=== PATIENT | male | born 1970 | race Caucasian/White ===

== ENCOUNTER → 2022-09-06 08:24 | Outpatient (CLI) | payer OTHER, SELFPAY ==
--- NOTE | ~2022-09-06 | CT_ITS ---
CT of the Abdomen and Pelvis: Indication: Abdominal mass, hematochezia Technique: 2.5 mm axial scans were obtained through the abdomen and pelvis following intravenous adm inistration of 100 cc of Omnipaque 350. Dose reduction technique was used on this scan by utilizing a utomated exposure control and iterative reconstruction technique. The dose-length product (DLP) was 1 156.27 mGy-cm. Findings: Scans through the lung bases are unremarkable. Probable diffuse fatty infiltration of liver noted. The spleen, pancreas, gallbladder, adrenals and k idneys are within normal limits. No evidence of aortic aneurysm. No retroperitoneal lymphadenopathy . No bowel obstruction or bowel wall thickening. There is no evidence to suggest acute appendicitis. Th ere is mild haziness in the central mesentery with shotty small lymph nodes present. Images through the pelvis were performed. Urinary bladder unremarkable. Prostate gland and seminal ve sicles are unremarkable. No ascites. Impression: Mild mesenteric panniculitis. Diffuse fatty infiltration of liver. Reviewed, dictated and finalized at [facility]. [employer] Impression: Mild mesenteric panniculitis. Diffuse fatty infiltration of liver.
[2022-09-06 08:46] LABS: Estimated Glomerular Filt Rate > 60
== END ==
PROVIDERS: PCP Family Medicine Adolescent Medicine; Visit Provider Physician Assistant
DX: R19.00 Intra-abdominal and pelvic swelling, mass and lump, unspecified site (principal); K92.1 Melena; K76.0 Fatty (change of) liver, not elsewhere classified
CPT/HCPCS: 74177; Q9967

== ENCOUNTER 2022-09-24 08:37 | Day surgery (SDC) | payer OTHER, SELFPAY ==
[2022-08-19 14:16] VITALS: BMI 33.9
[2022-09-10 14:20] VITALS: BMI 33.2
[2022-09-24 11:05] VITALS: BMI 33.7
[2022-09-24 11:15] VITALS: BP 141/106; PULSE 68; RESP 16; TEMP 36.7; O2SAT 100
[2022-09-24 11:43] LABS: Glucose Point of Care 118 mg/dl (65-105)
--- NOTE | 2022-09-24 12:23 | SUR.PREOP ---
PT AND SPOUSE NOTIFIED OF DOCTOR DELAY OF APPROX 1 HOUR
--- NOTE | 2022-09-24 12:54 | WPDANESEPPF ---
Anes - Initial Pre Proc Eval Procedure: Operation Date: 09/24/22 12:30 Proposed Procedures p Diagnostic Colonoscopy - Dilan Boone MD Date/Time: 09/24/22 12:54 Surgeon: Dilan Boone MD Pre Op Diagnosis: Melena Patient Data Age: 51 Gender: M Height: 1.83 m Weight: 112.8 kg Allergies Allergy/AdvReac Type Severity Reaction Status Date / Time naproxen Allergy Mild Hives Verified 09/24/22 11:04 acetaminophen Allergy Unknown RASH Verified 09/24/22 11:04 celecoxib Allergy Unknown Hives Verified 09/24/22 11:04 oxycodone Allergy Unknown RASH Verified 09/24/22 11:04 Home Medications Medication Instructions Recorded Confirmed Type levothyroxine 200 mcg tablet See Rx Instructions .Route 05/05/22 09/24/22 Rx .COMPLEX #90 tabs metformin 500 mg tablet,extended See Rx Instructions .Route 05/05/22 09/24/22 Rx release 24 hr .COMPLEX #90 tabs Laboratory Tests 09/24/22 11:37 POC Capillary Glucose 118 mg/dl H mg/dl (65-105) Patient hx anesthesia problems: none Family hx anesthesia problems: none Results Review: All pre-operative results and documents have been reviewed as part of the pre-operative evaluation. [facility] Surgical History Surgical History Previous back surgery Family History Family History Father Acute myocardial infarction Cerebrovascular accident Depression Diabetes mellitus Heart disease Hypertension Sibling Acute myocardial infarction Cerebrovascular accident Depression Heart disease Hypertension Sibling Depression Hypertension Mother Diabetes mellitus Hypertension Social History Social History Smoking status: Current every day smoker Tobacco type: cigars Second hand tobacco smoke exposure: Yes Alcohol intake: current Drinks per week: 3 Substance use: never Substance use type: does not use Living arrangements: with family Occupation/Education: occupation Gender identity (if verbalized by the patient): Male Sexual Orientation (if Verbalized by the Patient): Straight or Heterosexual Spiritual care concerns: No Agree to blood products: Yes Anes - Eval Final PreProcedure Day of Procedure 03/28/23 12:54 Patient weight: obese Heart: regular rate and rhythm Lungs: decreased breath sounds Airway: Mallampati scale class II Neurological: alert and oriented Last oral intake: >/= 8 hours ASA classification: III Emergent: no Anesthetic plan: proceed Anesthesia type and monitoring: general GIVS and standard monitoring Results Review: All pre-operative results and documents have been reviewed as part of the pre-operative evaluation. Informed Consent: The patient's anesthetic plan and its attendant risks and benefits were discussed with the patient/family/POA. Questions were solicited and answers provided to the satisfaction of the patient/family/POA.
[2022-09-24] MEDS: LACTATED RINGERS 1,000 ML 150 ML IV CONT (13:01)
--- NOTE | 2022-09-24 13:44 | PM.HPGS ---
History of Present Illness History of Present Illness Consent: Risks, benefits, and alternatives have been discussed and questions answered. Patient agrees to proceed with procedure. Chief complaint: Melena Narrative: Hola Armstrong is a 51 year old male here for first colonoscopy, intermittent blood in stools. Review of Systems Constitutional: Constitutional: Denies headache(s) and Denies weakness Eyes: Eyes: Denies blurry vision ENT: Reports Normal hearing present, Denies headache(s) and Denies neck pain Cardiovascular: Cardiovascular: Denies chest pain and Denies dyspnea Respiratory: Respiratory: Denies dyspnea Gastrointestinal: Gastrointestinal: Reports no additional gastrointestinal complaints Genitourinary: Genitourinary: Denies dysuria Musculoskeletal: Musculoskeletal: Denies neck pain Integumentary/Breasts: Skin/Breast: Denies dry skin Neurologic: Reports Normal hearing present, Denies headache(s) and Denies weakness Psychiatric: Psychiatric: Denies anxiety Endocrine: Endocrine: Denies change in body appearance Hematologic/Lymphatic: Hematologic/Lymphatic: Denies easy bleeding Allergic/Immunologic: Allergic/Immunologic: Denies urticaria PMFSH Past Medical History Medical History (Updated 09/24/22 @ 13:44 by Dilan Boone MD) Rectal bleeding Surgical History Surgical History Previous back surgery Family History Family History Father Acute myocardial infarction Cerebrovascular accident Depression Diabetes mellitus Heart disease Hypertension Sibling Acute myocardial infarction Cerebrovascular accident Depression Heart disease Hypertension Sibling Depression Hypertension Mother Diabetes mellitus Hypertension Social History Social History Smoking status: Current every day smoker Tobacco type: cigars Second hand tobacco smoke exposure: Yes Alcohol intake: current Drinks per week: 3 Substance use: never Substance use type: does not use Living arrangements: with family Occupation/Education: occupation Gender identity (if verbalized by the patient): Male Sexual Orientation (if Verbalized by the Patient): Straight or Heterosexual Spiritual care concerns: No Agree to blood products: Yes Meds Home Medications and Allergies Home Medications Medication Instructions Recorded Confirmed Type levothyroxine 200 mcg tablet See Rx Instructions .Route 05/05/22 09/24/22 Rx .COMPLEX #90 tabs metformin 500 mg tablet,extended See Rx Instructions .Route 05/05/22 09/24/22 Rx release 24 hr .COMPLEX #90 tabs Allergies Allergy/AdvReac Type Severity Reaction Status Date / Time naproxen Allergy Mild Hives Verified 09/24/22 11:04 acetaminophen Allergy Unknown RASH Verified 09/24/22 11:04 celecoxib Allergy Unknown Hives Verified 09/24/22 11:04 oxycodone Allergy Unknown RASH Verified 09/24/22 11:04 Vital Signs Vital Signs - 24 hr 09/24/22 11:15 Temperature 98.1 F Pulse Rate 68 Respiratory Rate 16 Blood Pressure 141/106 H Pulse Oximetry 100 Oxygen Delivery Room Air Exam Const: General: comfortable and no acute distress HENMT: Face/Nose/Sinus: Normal nares present Eyes: General: appearance normal, both eyes and all related structures Neck: Neck: no JVD Resp: Auscultation: clear to auscultation bilaterally Cardio: Rate: regular rate Rhythm: regular rhythm GI: Inspection: non-distended GI Palp: Yes Soft to palpation Skin: General skin exam: normal color Neuro: General: gait normal Speech: normal speech Extrem: General: normal to inspection Psych: Mental Status: mental status grossly normal Assessment and Plan Assessment and plan (1) Rectal bleeding: Code(s): K62.5 - Hemorrhage of anus and rectum Status
[2022-09-24 14:17] VITALS: BP 94/53; PULSE 61; RESP 16; O2SAT 96
[2022-09-24 14:27] VITALS: BP 133/95; PULSE 60; RESP 18; O2SAT 98
[2022-09-24 14:37] VITALS: BP 125/106; PULSE 65; RESP 18; O2SAT 98
--- NOTE | 2022-09-24 14:50 | SUR.PHASEII ---
1417; PT C/O PAIN TO LLQ. ABD SOFT. PT ASSISTED TO LAY ON RT SIDE WITH KNEES DRAWN UP
--- NOTE | 2022-09-24 14:51 | SUR.PHASEII ---
PT STATES FEELING BETTER NOW, PAIN IMPROVED TO LLQ. ASKING TO GO HOME
--- NOTE | 2022-09-24 15:10 | WPDANESPN ---
Anes - Prog Note Post-Op Date/Time: 09/24/22 15:10 Cardiovascular status: normal Respiratory status: normal Airway patency: baseline Mental status: baseline Post-Op hydration status: normal Vital Signs: Last Vital Signs Temp 36.7 C 09/24/22 11:15 Pulse 65 09/24/22 14:37 Resp 18 09/24/22 14:37 BP 125/106 H 09/24/22 14:37 Pulse Ox 98 09/24/22 14:37 O2 Del Method Room Air 09/24/22 14:37 Pain Score (VAS): 2 I/O: Intake & Output 09/23/22 09/24/22 09/24/22 23:59 07:59 15:59 Intake Total 1000 Balance 1000 09/24/22 11:37 POC Capillary Glucose 118 H Patient Feedback: Patient satisfied with anesthetic care.
--- NOTE | 2022-09-24 15:12 | SUR.PHASEII ---
1419; LATE NOTE. DR PRINCE IN ROOM SPEAKING TO PT AND SPOUSE. RN NOTIFIED DR MAGANA OF PT'S C/O PAIN TO [facility].
== END 2022-09-24 15:05 | disposition home or self-care (01) ==
PROVIDERS: PCP Family Medicine Adolescent Medicine; Visit Provider Internal Medicine Gastroenterology
PROC: 0DJD8ZZ Inspection of Lower Intestinal Tract, Via Natural or Artificial Opening Endoscopic (ICD-10-PCS; CPT 45378; principal; 2022-09-24 12:30)
DX: K62.5 Hemorrhage of anus and rectum (principal)
CPT/HCPCS: 45385; 45381; 45380

== ENCOUNTER 2022-09-24 09:00 | Outpatient (NON) | payer OTHER, SELFPAY | END 2022-09-24 09:01 | disposition home or self-care (01) | LOC: ANHLAB 09-25 09:44 | PROVIDERS: PCP Family Medicine Adolescent Medicine; Visit Provider Internal Medicine Gastroenterology | DX: K63.89 Other specified diseases of intestine (principal) | CPT/HCPCS: 88305 ==

== ENCOUNTER 2022-11-01 09:51 | Outpatient (CLI) | payer OTHER, SELFPAY ==
--- NOTE | 2022-11-01 10:33 | ECG_ITS ---
Measurements Intervals [place] Rate: 56 P: -23 IA: 187 QRS: -11 QRSD: 106 T: 0 QT: 416 QTc: 403 Interpretive Statements SINUS BRADYCARDIA INCOMPLETE RIGHT BUNDLE BRANCH BLOCK VOLTAGE CRITERIA FOR LVH BORDERLINE T WAVE ABNORMALITY- INFERIOR LEADS BORDERLINE ECG NO PREVIOUS ECG AVAILABLE FOR COMPARISON Electronically Signed On 11-01-2022 11:11:47 CDT by Seth Ljoa D.O.
[2022-11-01 11:25] LABS: Anion Gap 7 mmol/L (8-16); Blood Urea Nitrogen 13 mg/dL (9-20); Calcium 9.9 mg/dL (8.4-10.2); Carbon Dioxide 30 mmol/L (22-30); Chloride 102 mmol/L (98-107); Estimated Glomerular Filt Rate > 60; Glucose 102 mg/dL (65-110); Potassium 4.7 mmol/L (3.4-5.0); Sodium 139 mmol/L (137-145)
[2022-11-01 17:52] LABS: Carcinoembryonic Antigen 0.8 ng/mL (0.0-3.0)
== END 2022-11-01 09:52 | disposition home or self-care (01) ==
PROVIDERS: Anesthesiology; PCP Family Medicine Adolescent Medicine; Visit Provider Surgery
DX: K63.89 Other specified diseases of intestine (principal); E11.9 Type 2 diabetes mellitus without complications; Z01.818 Encounter for other preprocedural examination; I45.10 Unspecified right bundle-branch block
CPT/HCPCS: 36415; 80048; 82378; 86850; 86900; 86901; 93005

== ENCOUNTER 2022-11-13 16:04 | Inpatient (IN) | payer OTHER, SELFPAY ==
[2022-11-01 09:59] VITALS: BMI 33.5
--- NOTE | 2022-11-01 10:17 | PC.NURSE ---
Report to the Outpatient Waiting Room, entrance under the green pavilion located off [facility], at time _0800 on date _11/13/22 . Planned Procedure Time: ___1000 . Time changes happen often and if your time is changed the preop area will call you the afternoon before. - You and your visitor will be asked to self-screen and do not enter if you have any COVID symptoms. - A mask is optional within the hospital at this time. Patients may have clear liquids (water, carbonated beverages, clear teas, apple juice) until 3 hours prior to surgery with a maximum of 20 ounces. - No food from midnight until time of surgery - Infants may have breast milk until 4 hours before surgery, infant formula 6 hours prior to surgery. - Children will be allowed to drink immediately following surgery. If applicable, please bring a bottle or sippy cup to assist with drinking. Juice, water, soda, and popsicles are readily available. For infants on formula, please bring formula the day of surgery. Pacifiers are allowed. Take the following medications with a SIP of water the morning of surgery: LEVOTHRYOXINE DO NOT STOP ANY OF YOUR OTHER PRESCRIPTION MEDICATIONS PRIOR TO SURGERY ?EXCEPT THE FOLLOWING Medications to discontinue per physician NONE Date to take last dose Please no make-up, nail cymraes, hairspray, perfume, deodorant, or body powder the day of surgery. No jewelry (including any body piercings) or valuables the day of surgery, leave them at home. Please take a shower or bath the night before, or the morning of, surgery with an antibacterial soap. Wear comfortable, loose fitting clothing. Children are encouraged to wear pajamas. - Jewelry must be removed prior to entering the operating room. Rings and piercings that are not removed may be cut off. - The hospital will not accept responsibility for valuables. - Please leave all valuables, including medications, at home the day of surgery. HIBICLENS SHOWER DAY BEFORE SURGERY AND MORNING OF SURGERY If you are going home after surgery, a licensed milk tanker driver must drive you home. - NO public transportation without another adult if you receive anesthesia. - We recommend that an adult stay with you for 24 hours following discharge. - We also recommend that you do not drive, make important decision, drink alcoholic beverages, or take any drugs that were not prescribed by your health care provider for at least 24 hours after your discharge time. Follow any additional instructions given to you from your surgeon. If you or anyone in your household have experienced Covid symptoms in the past week, please notify your surgeon or the nurse liaison at the phone number below for possible testing. VERBAL AND WRITTEN instructions given to __PATIENT and asked if any additional questions and then verbalized understanding. Patient advised to call surgeon office or pre surgery nurse liaison [phone] if any additional questions.
[2022-11-01 10:30] VITALS: BP 136/99; PULSE 58; RESP 18; TEMP 36.8; O2SAT 99
[2022-11-13] VITALS (15 sets, daily range): BP systolic 80–153; BP diastolic 53–98; PULSE 63–107; RESP 11–18; TEMP 36.4–37.6; O2SAT 90–100; BMI 32.4
--- NOTE | 2022-11-13 08:31 | WPDANESEPPF ---
Anes - Initial Pre Proc Eval Procedure: Operation Date: 11/13/22 10:00 Proposed Procedures p Laparoscopic Left Hemicolectomy Davinci Assisted - Wilton Hu DO Date/Time: 11/13/22 08:31 Surgeon: Wilton Hu DO Pre Op Diagnosis: descending colon mass Patient Data Age: 52 Gender: M Height: 1.85 m Weight: 111.6 kg Last Vital Signs Temp 97.8 F 11/13/22 08:07 Pulse 63 11/13/22 08:07 Resp 15 11/13/22 08:07 BP 132/86 11/13/22 08:07 Pulse Ox 99 11/13/22 08:07 O2 Del Method Room Air 11/13/22 08:07 Allergies Allergy/AdvReac Type Severity Reaction Status Date / Time naproxen Allergy Mild Hives Verified 11/13/22 08:23 celecoxib Allergy Unknown Hives Verified 11/13/22 08:23 oxycodone Allergy Unknown RASH Verified 11/13/22 08:23 Home Medications Medication Instructions Recorded Confirmed Type levothyroxine 200 mcg tablet See Rx Instructions .Route 05/05/22 11/01/22 Rx .COMPLEX #90 tabs metformin 500 mg tablet,extended See Rx Instructions .Route 05/05/22 11/01/22 Rx release 24 hr .COMPLEX #90 tabs ciprofloxacin HCl 500 mg tablet 500 mg PO .COMPLEX #1 tablet 10/10/22 11/01/22 Rx metronidazole 500 mg tablet 500 mg PO .COMPLEX #3 tabs 10/10/22 11/01/22 Rx Patient hx anesthesia problems: none Family hx anesthesia problems: none Results Review: All pre-operative results and documents have been reviewed as part of the pre-operative evaluation. [facility] Past Medical History Medical History Colonic mass Essential (primary) hypertension Hypothyroidism, unspecified Mixed hyperlipidemia Rectal bleeding Type 2 diabetes mellitus without complications Surgical History Surgical History History of fusion of cervical spine History of surgery on arm right bicep repair Previous back surgery Family History Family History Father Acute myocardial infarction Cerebrovascular accident Depression Diabetes mellitus Heart disease Hypertension Sibling Acute myocardial infarction Cerebrovascular accident Depression Heart disease Hypertension Sibling Depression Hypertension Mother Diabetes mellitus Hypertension Social History Social History Smoking status: Current every day smoker Tobacco type: cigars Second hand tobacco smoke exposure: Yes Additional smoking assessment comments: SMOKES 5-7 CIGARS/DAY X 30 YRS.LAST CIGAR WAS 10/12/22 Alcohol intake: current Drinks per week: 5 Substance use: never Substance use type: does not use Living arrangements: with family Occupation/Education: occupation Gender identity (if verbalized by the patient): Male Sexual Orientation (if Verbalized by the Patient): Straight or Heterosexual Spiritual care concerns: No Agree to blood products: Yes Anes - Eval Final PreProcedure Day of Procedure 11/13/22 08:31 Patient weight: obese Heart: regular rate and rhythm Lungs: clear to auscultation Airway: Mallampati scale class II Neurological: alert and oriented Last oral intake: >/= 8 hours ASA classification: III Emergent: no Anesthetic plan: proceed Anesthesia type and monitoring: general ETT and standard monitoring Results Review: All pre-operative results and documents have been reviewed as part of the pre-operative evaluation. Informed Consent: The patient's anesthetic plan and its attendant risks and benefits were discussed with the patient/family/POA. Questions were solicited and answers provided to the satisfaction of the patient/family/POA.
[2022-11-13 08:40] LABS: Glucose Point of Care 136 mg/dl (65-105)
[2022-11-13] MEDS: LACTATED RINGERS 1,000 ML 30 ML IV CONT ×2 (08:50→14:35)
[2022-11-13] MEDS: ACETAMINOPHEN 500 MG TABLET 1000 MG PO (08:50)
--- NOTE | 2022-11-13 09:24 | WPDHPUPDATE1 ---
History and Physical Update Update Date/Time: 11/13/22 09:24 History and Physical has been reviewed, including an updated exam of the patient. There are NO changes in the patient's condition. Risks, benefits, and alternatives have been discussed and questions answered. Patient agrees to proceed with procedure.
--- NOTE | 2022-11-13 09:25 | PM.IMHP ---
H&P: HPI History of Present Illness Date/Time: 11/13/22 09:25 Chief Complaint: Colon mass Narrative: This is a 52 yo man who presents for left hemicolectomy. He was experiencing rectal bleeding and a recent colonoscopy showed evidence of a descending colon mass. Biopsies showed evidence of adenoma with high grade dysplasia. He reports no changes since last seen in office. Review of Systems Review of Systems: All systems reviewed & are unremarkable except as noted in HPI and below Constitutional: Constitutional: Denies chills, Denies fever(s), Denies headache(s) and Denies weight loss Eyes: Eyes: Denies change in vision ENT: Denies dizziness, Denies headache(s), Denies neck mass and Denies throat swelling Cardiovascular: Cardiovascular: Denies chest pain, Denies lightheadedness and Denies dyspnea Respiratory: Respiratory: Denies cough, Denies dyspnea and Denies wheezing Gastrointestinal: Gastrointestinal: Denies abdominal pain, Denies change in bowel habits, Denies nausea and Denies vomiting Genitourinary: Genitourinary: Denies hematuria and Denies dysuria Musculoskeletal: Musculoskeletal: Reports as per HPI Integumentary/Breasts: Skin/Breast: Reports as per HPI Neurologic: Denies dizziness and Denies headache(s) Allergic/Immunologic: Allergic/Immunologic: Denies throat swelling and Denies wheezing PMFSH Past Medical History Medical History Colonic mass Essential (primary) hypertension Hypothyroidism, unspecified Mixed hyperlipidemia Rectal bleeding Type 2 diabetes mellitus without complications Surgical History Surgical History History of fusion of cervical spine History of surgery on arm right bicep repair Previous back surgery Family History Family History Father Acute myocardial infarction Cerebrovascular accident Depression Diabetes mellitus Heart disease Hypertension Sibling Acute myocardial infarction Cerebrovascular accident Depression Heart disease Hypertension Sibling Depression Hypertension Mother Diabetes mellitus Hypertension Social History Social History Smoking status: Current every day smoker Tobacco type: cigars Second hand tobacco smoke exposure: Yes Additional smoking assessment comments: SMOKES 5-7 CIGARS/DAY X 30 YRS.LAST CIGAR WAS 10/12/22 Alcohol intake: current Drinks per week: 5 Substance use: never Substance use type: does not use Living arrangements: with family Occupation/Education: occupation Gender identity (if verbalized by the patient): Male Sexual Orientation (if Verbalized by the Patient): Straight or Heterosexual Spiritual care concerns: No Agree to blood products: Yes Meds Home Medications and Allergies Home Medications Medication Instructions Recorded Confirmed Type levothyroxine 200 mcg tablet See Rx Instructions .Route 05/05/22 11/01/22 Rx .COMPLEX #90 tabs metformin 500 mg tablet,extended See Rx Instructions .Route 05/05/22 11/01/22 Rx release 24 hr .COMPLEX #90 tabs ciprofloxacin HCl 500 mg tablet 500 mg PO .COMPLEX #1 tablet 10/10/22 11/01/22 Rx metronidazole 500 mg tablet 500 mg PO .COMPLEX #3 tabs 10/10/22 11/01/22 Rx Allergies Allergy/AdvReac Type Severity Reaction Status Date / Time naproxen Allergy Mild Hives Verified 11/13/22 08:23 celecoxib Allergy Unknown Hives Verified 11/13/22 08:23 oxycodone Allergy Unknown RASH Verified 11/13/22 08:23 Vital Signs Vital Signs - 24 hr 11/13/22 08:07 Temperature 36.6 C Pulse Rate 63 Respiratory Rate 15 Blood Pressure 132/86 Pulse Oximetry 99 Oxygen Delivery Room Air Exam Const: General: no acute distress and alert Orientation/consciousness: patient oriented x3 HENMT: Head: normocephalic and atraumatic
[2022-11-13] MEDS: metroNIDAZOLE 500 MG/ISO 100ML 500 MG/100 ML BAG 100 MG IVPB (09:45)
[2022-11-13] MEDS: ceFAZolin 2 GM/D5W 50 ML 2 GM/50 ML BAG IVPB (09:51)
[2022-11-13] MEDS: BUPIVACAINE/EPINEPHRINE 0.25% 10 ML VIAL 30 ML INFILTRATE (10:56)
[2022-11-13] MEDS: ceFAZolin SODIUM 1 GM VIAL IV PUSH (13:49)
--- NOTE | 2022-11-13 14:37 | W.PM.PROC2 ---
Procedure Note - Detailed Date of Procedure 11/13/22 Pre-op Diagnosis descending colon mass Post-op Diagnosis Other (Proximal sigmoid mass) Procedure Performed Laparoscopic sigmoid colectomy with colorectal anastomosis, da Samira assisted Surgeon Wilton Hu, Anesthesia General and Local (Exparel) Indications This is a 52-year-old man who presented with left lower quadrant pain and rectal bleeding. He underwent colonoscopy by Dr. Boone on 09/24/2022 and this showed evidence of a circumferential mass in the descending colon about 30 cm from the anal verge. Biopsies showed evidence of adenoma with high-grade dysplasia, cannot rule out malignancy. CT of his abdomen and pelvis had already been done and this showed no evidence of metastases. His preoperative CEA level was 0.8. Discussions were made with the patient about treatment options and decision was made to proceed with robotic assisted laparoscopic left hemicolectomy, possible open. Findings Laparoscopic sigmoid colectomy was performed. Upon inspecting the abdominal cavity the tattooed region and mass were identified in the proximal sigmoid. The patient had some adhesions from his prior anterior approach for back surgery. The left lower quadrant did have a fair amount of adhesions making the ureter difficult to identify at 1st. Eventually I was able to identify the left ureter and protected it in its location. A high ligation of the inferior mesenteric artery was performed. Indocyanine green was used to assess perfusion of the proximal and distal transection locations. A 28 mm end-to-end anastomosis was then performed. Leak test showed no evidence of air bubbles leaking. The sigmoid colon was the lab for pathology with the distal end marked with a suture. Description of Procedure Procedure as well as risks, benefits, and alternatives were discussed with the patient. Written consent was obtained and placed in chart prior to procedure. Patient was brought back to surgical suite. He was placed supine on operating table. Time-out was done to confirm patient and procedure. He was then intubated by the anesthesia department. He was then repositioned into a modified lithotomy position. His rectal area was prepped and draped in sterile fashion using Betadine prep and his abdomen was prepped and draped in sterile fashion using chlorhexidine prep. A 8 mm incision was made in the right upper quadrant and a 5 mm Optiview trocar was advanced through the abdominal layers under direct visualization. Once inside the abdominal cavity, carbon dioxide insufflation was used to create a pneumoperitoneum. Camera was inserted and her abdomen was inspected laparoscopically. No immediate abnormalities were identified. The patient was placed in steep Trendelenburg position. A 12 mm incision was made in the right lower quadrant about 2 cm medial to the ASIS, and a 12 mm trocar was inserted under direct visualization. Three more 8 mm incisions were placed and 8 mm ports were placed under direct visualization on an oblique angle going up towards the left upper quadrant. 0.25% bupivacaine with epinephrine was infiltrated locally around each of the incisions. A careful thorough examination of the abdominal cavity was performed. The omentum was reflected cephalad over the stomach. The cecum and small bowel were reflected out of the pelvis. The robotic arms were then brought up to the patient's bedside in secured to the ports. The robotic camera and instruments were then inserted and then I moved over to the robotic console and took control of the camera and instruments. After carefully inspecting the abdominal cavity, I then lifted the rectosigmoid junction anteriorly to tent up the inferior mesenteric artery pedicle. A medial to lateral dissection was performed using scissors with electrocautery. I scored the peritoneum along the undersurface of the superior hemorrhoidal vessel at the sacral promontory
[2022-11-13 15:00] LABS: Glucose Point of Care 147 mg/dl (65-105)
[2022-11-13] MEDS: fentaNYL CITRATE INJ (*CRX) 100 MCG/2 ML VIAL 25 MCG IV PUSH (15:59)
--- NOTE | 2022-11-13 17:09 | ADMGEN ---
This patient, Hola Armstrong, was admitted to Medical Room 249-01. Patient/family oriented to hospital policies and general routines including ID bracelet, bed and alarms, visiting hours, pain management, procedures, bathroom and other care routines, personal items, smoking policy, room service/diet, and visiting hours. Information on how to activate the Rapid Response Team has been discussed. Patient/Family are encouraged to report perceived risks to care and to ask questions if they do not understand what they are told or what they should do.
[2022-11-13 17:12] LABS: Glucose Point of Care 148 mg/dl (65-105)
[2022-11-13] MEDS: ACETAMINOPHEN 325 MG TABLET 650 MG PO (17:27)
[2022-11-13] MEDS: HYDROcodone/acetaminophen (*CRX) 10-325 MG TABLET 1 TAB PO (17:27)
[2022-11-13] MEDS: LACTATED RINGERS 1,000 ML 100 ML IV CONT (17:30)
[2022-11-13] MEDS: ceFAZolin 1 GM/NS 50 ML 1 GM/50 ML BAG IVPB (17:34)
[2022-11-13 20:29] LABS: Glucose Point of Care 170 mg/dl (65-105)
[2022-11-13] MEDS: HYDROcodone/acetaminophen (*CRX) 5-325 MG TABLET 1 TAB PO (21:24)
[2022-11-14] VITALS (7 sets, daily range): BP systolic 108–138; BP diastolic 58–83; PULSE 65–86; RESP 16–19; TEMP 36.8–37.6; O2SAT 91–95
[2022-11-14] MEDS: ceFAZolin 1 GM/NS 50 ML 1 GM/50 ML BAG IVPB (00:06)
[2022-11-14] MEDS: ACETAMINOPHEN 325 MG TABLET 650 MG PO ×5 (00:06→23:32)
[2022-11-14] MEDS: LACTATED RINGERS 1,000 ML 100 ML IV CONT (03:30)
[2022-11-14] MEDS: HYDROcodone/acetaminophen (*CRX) 10-325 MG TABLET 1 TAB PO (03:49)
[2022-11-14 05:35] LABS: Basophils Percent Auto 0.2 % (0.2-1.2); Eosinophils Percent Auto 0.1 % (0-4.4); Hematocrit 42.5 % (42.0-52.0); Hemoglobin 13.9 g/dL (14.0-18.0); Immature Granulocyte Absolute 0.05 K/mm3 (0.00-0.031); Immature Granulocyte Percent A 0.4 % (0-0.5); Lymphocytes Absolute Auto 2.88 K/mm3 (0.9-3.2); Lymphocytes Percent Auto 20.7 % (18.3-44.2); Mean Corpuscular HGB Conc 32.7 g/dl (32-36); Mean Corpuscular Hemoglobin 28.3 pg (26-34); Mean Corpuscular Volume 86.4 fl (80-100); Mean Platelet Volume 10.5 fl (7.4-10.4); Monocytes Absolute Auto 1.3 K/mm3 (0.1-0.6); Neutrophils Absolute Auto 9.7 K/mm3 (1.3-6.7); Neutrophils Percent Auto 69.6 % (45.5-73.1); Platelet Count Result 222 k/mm3 (150-375); Red Blood Count 4.92 M/mm3 (4.6-6.20); Red Cell Distribution Width 13.4 % (11.5-14.5); White Blood Count 13.9 K/mm3 (4.5-10.0)
[2022-11-14 05:48] LABS: Anion Gap 8 mmol/L (8-16); Blood Urea Nitrogen 12 mg/dL (9-20); Calcium 8.5 mg/dL (8.4-10.2); Carbon Dioxide 27 mmol/L (22-30); Chloride 104 mmol/L (98-107); Estimated CRCL calculation 97 ml/min; Estimated Glomerular Filt Rate > 60; Glucose 128 mg/dL (65-110); Sodium 139 mmol/L (137-145)
[2022-11-14] MEDS: LEVOTHYROXINE SODIUM 100 MCG TABLET PO (06:09)
[2022-11-14 08:33] LABS: Glucose Point of Care 124 mg/dl (65-105)
[2022-11-14] MEDS: metFORMIN HCL XR 500 MG TAB.SR.24H PO (08:54)
[2022-11-14] MEDS: ENOXAPARIN 40 MG/0.4 ML SYRINGE SUB-Q (08:55)
[2022-11-14] MEDS: HYDROcodone/acetaminophen (*CRX) 5-325 MG TABLET 1 TAB PO ×2 (09:00→16:26)
--- NOTE | 2022-11-14 09:58 | PM.PNGS ---
Progress Note: A&P Assessment and Plan (1) Colonic mass: Code(s): K63.89 - Other specified diseases of intestine Status: Acute Assessment and Plan: Doing well postop day 1. Tolerated clear liquids. Advanced to full liquids for breakfast. Stop IV fluids. Encouraged increasing activity, sitting in the chair and ambulating today. Repeat labs tomorrow. Pathology pending. Plan I have discussed the patient's case and plan of care with Dr. Hu. Subjective Subjective Date/Time Seen: 11/14/22 09:58 Post Op day: 1 (Laparoscopic sigmoid colectomy with colorectal anastomosis, da Samira assisted) Patient reports: tolerating liquids well, voiding w/o difficulty, flatus, no bowel movement and afebrile Interval history: Patient reports having some incisional pain and soreness, but currently being controlled with oral analgesics. He is tolerating liquids well. No nausea or vomiting. Some mild bloating. He was up to the chair last night and tolerated this well. Review of Systems Review of Systems: All systems reviewed & are unremarkable except as noted in HPI and below Exam Const: General: comfortable, no acute distress and awake Orientation/consciousness: patient oriented x3 Resp: Effort & Inspection: normal respiratory effort Auscultation: clear to auscultation bilaterally Cardio: Rate: regular rate Rhythm: regular rhythm GI: Inspection: non-distended and incision (incisions dry and intact, no erythema) GI Palp: Yes Soft to palpation, Yes Tenderness to palpation present (GI) (incisional) and No Guarding due to palpation present (GI) Auscultation: normal bowel sounds Neuro: General: moves all extremities and no focal motor deficits Extrem: General: no calf tenderness and no edema Psych: Mental Status: mental status grossly normal Insight: Good insight present (Psych) Objective Data Vital Signs Vital Signs: Vital Signs - 24 hr 11/13/22 14:35 11/13/22 14:51 11/13/22 15:05 Temperature 98.1 F Pulse Rate 72 80 87 Respiratory Rate 16 18 13 Blood Pressure 126/73 115/64 137/86 Pulse Oximetry 96 97 97 Oxygen Delivery Simple Face Mask Simple Face Mask Simple Face Mask Oxygen Flow Rate 10 10 10 11/13/22 15:20 11/13/22 15:35 11/13/22 15:50 Temperature Pulse Rate 87 84 91 Respiratory Rate 14 11 L 13 Blood Pressure 134/93 H 151/94 H 146/92 H Pulse Oximetry 100 94 95 Oxygen Delivery Room Air Room Air Room Air Oxygen Flow Rate 11/13/22 15:30 11/13/22 17:16 11/13/22 16:19 Temperature 97.5 F L 97.9 F Pulse Rate 87 100 Respiratory Rate 12 12 Blood Pressure 139/80 151/84 H Pulse Oximetry 91 94 Oxygen Delivery Room Air Oxygen Flow Rate 11/13/22 16:49 11/13/22 17:49 11/13/22 19:38 Temperature 97.9 F 98.3 F 99.3 F Pulse Rate 107 H 100 75 Respiratory Rate 16 16 17 Blood Pressure 153/93 H 148/98 H 80/53 L Pulse Oximetry 96 94 92 Oxygen Delivery Oxygen Flow Rate 11/13/22 19:56 11/13/22 20:57 11/13/22 22:55 Temperature 99.2 F 99.6 F Pulse Rate 99 97 Respiratory Rate 18 17 Blood Pressure 108/76 117/71 114/65 Pulse Oximetry 90 92 Oxygen Delivery Oxygen Flow Rate 11/14/22 03:55 Temperature 98.2 F Pulse Rate 75 Respiratory Rate 16 Blood Pressure 108/63 Pulse Oximetry 91 Oxygen Delivery Oxygen Flow Rate Intake/Output Intake/Output: Intake & Output 11/11/22 11/12/22 11/13/22 11/14/22 23:59 23:59 23:59 23:59 Intake Total 1000 2900 Output Total 375 1750 Balance 625 1150 Meds/Results Medications: Active Medications Generic Name Dose Route Start Last Admin Trade Name Freq PRN Reason Stop Dose Admin Acetaminophen 650 mg 11/13/22 18:00 11/14/22 06:09 Acetaminophen 325 Mg Tablet PO 650 mg Q6HR KATHY Administration Hydrocodone Bitart/Acetaminophen 1 tab 11/13/22 16:04 11/14/22 09:00 Hydrocodone/Acetaminophen (*Crx) 5-325 Mg Tablet PO 1 tab Q4H PRN Administration Pain Rated 4-6 Hydrocodone
--- NOTE | 2022-11-14 10:25 | P.PNAN_ITS ---
Anes - Prog Note Post-Op Date/Time: 11/14/22 10:25 Cardiovascular status: normal Respiratory status: normal Airway patency: baseline Mental status: baseline Post-Op hydration status: normal Vital Signs: Last Vital Signs Temp 36.8 C 11/14/22 03:55 Pulse 75 11/14/22 03:55 Resp 16 11/14/22 03:55 BP 108/63 11/14/22 03:55 Pulse Ox 91 11/14/22 03:55 O2 Del Method Room Air 11/14/22 09:00 O2 Flow Rate 10 11/13/22 15:05 Pain Score (VAS): 2-3. mostly gas pain. I/O: Intake & Output 11/13/22 11/14/22 11/14/22 23:59 07:59 15:59 Intake Total 800 2300 600 Output Total 375 1750 Balance 425 550 600 Laboratory Tests 11/14/22 05:06 11/14/22 05:06 11/13/22 11/13/22 11/13/22 14:47 17:00 19:40 WBC RBC Hgb Hct MCV MCH MCHC RDW Plt Count MPV Immature Gran % (Auto) Neut % (Auto) Lymph % (Auto) [place] % (Auto) Eos % (Auto) Baso % (Auto) Lymph # (Auto) [place] # (Auto) Eos # (Auto) Baso # (Auto) Abs Immat Gran (auto) Absolute Neuts (auto) Absolute Nucleated RBC Nucleated RBC % Sodium Potassium Chloride Carbon Dioxide Anion Gap BUN Creatinine Estim Creat Clear Calc Estimated GFR Glucose POC Capillary Glucose 147 H 148 H 170 H Calcium 11/14/22 11/14/22 05:06 08:17 WBC 13.9 H RBC 4.92 Hgb 13.9 L Hct 42.5 MCV 86.4 MCH 28.3 MCHC 32.7 RDW 13.4 Plt Count 222 MPV 10.5 H Immature Gran % (Auto) 0.4 Neut % (Auto) 69.6 Lymph % (Auto) 20.7 [place] % (Auto) 9.0 H Eos % (Auto) 0.1 Baso % (Auto) 0.2 Lymph # (Auto) 2.88 [place] # (Auto) 1.3 H Eos # (Auto) 0.0 Baso # (Auto) 0.0 Abs Immat Gran (auto) 0.05 H Absolute Neuts (auto) 9.7 H Absolute Nucleated RBC 0.0 Nucleated RBC % 0.0 Sodium 139 Potassium 4.0 Chloride 104 Carbon Dioxide 27 Anion Gap 8 BUN 12 Creatinine 1.00 Estim Creat Clear Calc 97 Estimated GFR > 60 Glucose 128 H POC Capillary Glucose 124 H Calcium 8.5 Post-procedural complaints: none Patient Feedback: Patient satisfied with anesthetic care.
[2022-11-14 12:19] LABS: Glucose Point of Care 103 mg/dl (65-105)
[2022-11-14 17:32] LABS: Glucose Point of Care 102 mg/dl (65-105)
[2022-11-14 20:32] LABS: Glucose Point of Care 155 mg/dl (65-105)
[2022-11-15 04:14] VITALS: BP 145/88; PULSE 80; RESP 19; TEMP 36.8; O2SAT 91
[2022-11-15 05:23] LABS: Hematocrit 44.7 % (42.0-52.0); Hemoglobin 14.5 g/dL (14.0-18.0); Mean Corpuscular HGB Conc 32.4 g/dl (32-36); Mean Corpuscular Hemoglobin 28.8 pg (26-34); Mean Corpuscular Volume 88.9 fl (80-100); Mean Platelet Volume 10.2 fl (7.4-10.4); Platelet Count Result 199 k/mm3 (150-375); Red Blood Count 5.03 M/mm3 (4.6-6.20); Red Cell Distribution Width 13.7 % (11.5-14.5); White Blood Count 12.5 K/mm3 (4.5-10.0)
[2022-11-15 05:25] LABS: Anion Gap 6 mmol/L (8-16); Blood Urea Nitrogen 13 mg/dL (9-20); Calcium 8.6 mg/dL (8.4-10.2); Carbon Dioxide 30 mmol/L (22-30); Chloride 103 mmol/L (98-107); Estimated CRCL calculation 106 ml/min; Estimated Glomerular Filt Rate > 60; Glucose 116 mg/dL (65-110); Potassium 3.8 mmol/L (3.4-5.0); Sodium 139 mmol/L (137-145)
[2022-11-15] MEDS: LEVOTHYROXINE SODIUM 100 MCG TABLET PO (05:34)
[2022-11-15] MEDS: ACETAMINOPHEN 325 MG TABLET 650 MG PO ×2 (05:34→12:35)
[2022-11-15 08:31] LABS: Glucose Point of Care 121 mg/dl (65-105)
[2022-11-15 09:00] VITALS: BP 128/85; PULSE 74; RESP 20; TEMP 36.7; O2SAT 96
[2022-11-15] MEDS: metFORMIN HCL XR 500 MG TAB.SR.24H PO (09:03)
[2022-11-15 12:08] LABS: Glucose Point of Care 112 mg/dl (65-105)
--- NOTE | 2022-11-15 13:06 | PM.DS ---
DS: Admitting Diagnosis Discharge Date 11/15/2022 Admitting Diagnosis Colon mass DS: Discharge Diagnosis Discharge Diagnosis (1) Colonic mass: Code(s): K63.89 - Other specified diseases of intestine Status: Acute (2) Type 2 diabetes mellitus without complications: Qualifiers: Diabetes mellitus intermediate designer insulin use: without intermediate designer use Qualified Code(s): E11.9 - Type 2 diabetes mellitus without complications Code(s): E11.9 - Type 2 diabetes mellitus without complications Status: Acute (3) Essential (primary) hypertension: Code(s): I10 - Essential (primary) hypertension Status: Acute (4) Hypothyroidism, unspecified: Code(s): E03.9 - Hypothyroidism, unspecified Status: Acute (5) Tobacco use: Code(s): Z72.0 - Tobacco use Status: Acute DS: Summary Hospital Course Reason for hospitalization: Colon mass Hospital Course: This is a 52-year-old man who presented for robotic assisted laparoscopic sigmoid colectomy on 11/13/2022. He was previously found to have a colon mass on colonoscopy and biopsies showed evidence of adenoma with high-grade dysplasia, possible malignancy. His preoperative CEA level was 0.[address] showed no evidence metastatic spread. He was admitted to the surgical floor postoperatively and was started on clear liquids. His activity was gradually advanced as tolerated. He was advanced to a full liquid diet on postop day 1 and was remaining hemodynamically stable. His pain was well controlled. Postoperative day 2 he was advanced to a soft regular diet. His bowels moving and he was tolerating his diet without any significant bloating, nausea, or vomiting. He was discharged on 11/15/2022. Pathology was still pending time discharge. Time spent discussing smoking cessation with patient: 3 to 10 minutes Status at Discharge Functional status at discharge: independent ambulation Overall status at discharge: patient is progressing back to baseline Time Spent with Patient Time attestation: Total time spent providing and/or coordinating discharge services: Time spent: Less than 30 minutes Exam Const: General: comfortable and no acute distress Orientation/consciousness: patient oriented x3 Resp: Effort & Inspection: normal respiratory effort Auscultation: clear to auscultation bilaterally Cardio: Rate: regular rate Rhythm: regular rhythm Heart sounds: S1 normal heart sound present and S2 normal heart sound present GI: Inspection: incision (Intact with glue) GI Palp: Yes Soft to palpation, No Tenderness to palpation present (GI) and No Guarding due to palpation present (GI) Percussion: Yes normal to percussion Auscultation: normal bowel sounds DS: Data Data Completed and Pending Pending studies at discharge: Pending at discharge 11/13/22 13:58 Surgical [PTH] Routine Labs on day of discharge: Labs from last 24 hours 11/15/22 11/15/22 11/15/22 11:58 08:23 04:55 WBC 12.5 H RBC 5.03 Hgb 14.5 Hct 44.7 MCV 88.9 MCH 28.8 MCHC 32.4 RDW 13.7 Plt Count 199 MPV 10.2 Sodium 139 Potassium 3.8 Chloride 103 Carbon Dioxide 30 Anion Gap 6 L BUN 13 Creatinine 0.90 Estim Creat Clear Calc 106 Estimated GFR > 60 Glucose 116 H POC Capillary Glucose 112 H 121 H Calcium 8.6 11/14/22 11/14/22 19:20 17:12 WBC RBC Hgb Hct MCV MCH MCHC RDW Plt Count MPV Sodium Potassium Chloride Carbon Dioxide Anion Gap BUN Creatinine Estim Creat Clear Calc Estimated GFR Glucose POC Capillary Glucose 155 H 102 Calcium Discharge Plan Discharge Attending physician on discharge: Wilton Hu Discharging Clinician: Wilton Hu Patient Disposition: Home, Self-Care Activity: other - see discharge instructions Diet: low fiber and other - see discharge instructions Wound Care In
== END 2022-11-15 14:25 | disposition home or self-care (01) | DRG 331 ==
LOC: ANH2MED 16:31
PROVIDERS: Nurse Practitioner Family; Admitting Provider Surgery; PCP Family Medicine Adolescent Medicine; Visit Provider Surgery
PROC: 0DBM4ZZ Excision of Descending Colon, Percutaneous Endoscopic Approach (ICD-10-PCS; principal; 2022-11-13 10:00)
DX: C18.6 Malignant neoplasm of descending colon (principal); E03.9 Hypothyroidism, unspecified; E78.5 Hyperlipidemia, unspecified; E11.9 Type 2 diabetes mellitus without complications; F17.290 Nicotine dependence, other tobacco product, uncomplicated; I10 Essential (primary) hypertension; Z79.84 Long term (current) use of oral hypoglycemic drugs
CPT/HCPCS: 36415; 80048; 82948; 85025; 85027; 88309; A9270; C1729; J0690; J1100; J1170; J1650; J2250; J2405; J2704; J2710; J3010; J7030; J7120

== ENCOUNTER 2023-03-19 12:57 | Outpatient (CLI) | payer OTHER, SELFPAY ==
--- NOTE | ~2023-03-19 | CT_ITS ---
CT of the Abdomen and Pelvis: Indication: Colon cancer restaging Technique: 2.5 mm axial scans were obtained through the abdomen and pelvis following intravenous adm inistration of 100 cc of Omnipaque 350. Dose reduction technique was used on this scan by utilizing a utomated exposure control and iterative reconstruction technique. The dose-length product (DLP) was 1 185.89 mGy-cm. COMPARISON: 09/06/2022 Findings: Scans through the lung bases are unremarkable. There is diffuse fatty infiltration of liver. The spleen, pancreas, gallbladder, adrenals and kidneys are within normal limits. No evidence of aortic aneurysm. No lymphadenopathy. No bowel obstruction or bowel wall thickening. Rectosigmoid anastomosis noted. There is no evidence t o suggest acute appendicitis. Images through the pelvis were performed. Urinary bladder unremarkable. Prostate gland and seminal ve sicles are unremarkable. No ascites. Impression: No evidence for active malignancy or metastatic disease. Rectosigmoid anastomosis noted. Diffuse fatty infiltration of the liver. Reviewed, dictated and finalized at location . Impression: No evidence for active malignancy or metastatic disease. Rectosigmoid anastomos is noted. Diffuse fatty infiltration of the liver.
[2023-03-19 13:46] LABS: Basophils Percent Auto 0.5 % (0.2-1.2); Eosinophils Absolute Auto 0.3 K/mm3 (0-0.3); Eosinophils Percent Auto 3.7 % (0-4.4); Hematocrit 45.3 % (42.0-52.0); Hemoglobin 15.1 g/dL (14.0-18.0); Immature Granulocyte Absolute 0.02 K/mm3 (0.00-0.031); Immature Granulocyte Percent A 0.3 % (0-0.5); Lymphocytes Absolute Auto 3.33 K/mm3 (0.9-3.2); Lymphocytes Percent Auto 41.9 % (18.3-44.2); Mean Corpuscular HGB Conc 33.3 g/dl (32-36); Mean Corpuscular Hemoglobin 28.9 pg (26-34); Mean Corpuscular Volume 86.6 fl (80-100); Mean Platelet Volume 10.5 fl (7.4-10.4); Monocytes Absolute Auto 0.6 K/mm3 (0.1-0.6); Monocytes Percent Auto 7.4 % (2.6-8.5); Neutrophils Absolute Auto 3.7 K/mm3 (1.3-6.7); Neutrophils Percent Auto 46.2 % (45.5-73.1); Platelet Count Result 196 k/mm3 (150-375); Red Blood Count 5.23 M/mm3 (4.6-6.20); Red Cell Distribution Width 13.4 % (11.5-14.5); White Blood Count 7.9 K/mm3 (4.5-10.0)
[2023-03-19 15:13] LABS: Alanine Aminotransferase 129 U/L (6-50); Albumin Level 4.7 g/dL (3.5-5.1); Alkaline Phosphatase 74 U/L (38-126); Anion Gap 7 mmol/L (8-16); Aspartate Amino Transferase 87 U/L (17-59); Bilirubin,Total 0.9 mg/dL (0.2-1.3); Blood Urea Nitrogen 14 mg/dL (9-20); Calcium 9.7 mg/dL (8.4-10.2); Carbon Dioxide 31 mmol/L (22-30); Chloride 101 mmol/L (98-107); Estimated Glomerular Filt Rate > 60; Glucose 106 mg/dL (65-110); Potassium 4.6 mmol/L (3.4-5.0); Sodium 139 mmol/L (137-145)
[2023-03-19 15:42] LABS: Carcinoembryonic Antigen 0.9 ng/mL (0.0-3.0)
== END 2023-03-19 12:58 | disposition home or self-care (01) ==
LOC: ANHIMG 13:00
PROVIDERS: PCP Family Medicine Adolescent Medicine; Visit Provider Internal Medicine Hematology & Oncology
DX: C18.9 Malignant neoplasm of colon, unspecified (principal); K76.0 Fatty (change of) liver, not elsewhere classified
CPT/HCPCS: 36415; 74177; 80053; 82378; 85025; Q9967

== ENCOUNTER 2023-10-10 07:42 | Outpatient (CLI) | payer OTHER, SELFPAY ==
--- NOTE | ~2023-10-10 | US_ITS ---
EXAMINATION: US abdomen complete DATE: 10/10/2023 08:19 INDICATION: Abnormal liver function tests. TECHNIQUE: Multiple grayscale and Doppler ultrasound images of the abdomen were obtained. COMPARISON: CT abdomen and pelvis 03/19/2023 FINDINGS: The abdominal aorta is normal in caliber. The inferior vena cava is normal. The visualized portions of the head, body, and tail of the pancreas are normal. There is diffuse hepatic steatosis w ith focal sparing in the gallbladder fossa. There is normal flow in main portal vein. The gallbladder is normal in size. No gallstones or gallbladder wall thickening. There is no sonographic Ramires sign . The common duct is normal and measures 3 mm. The kidneys are normal in size. The spleen is normal i n size. IMPRESSION: 1. Diffuse hepatic steatosis. Reviewed, dictated and finalized at location A.
== END 2023-10-10 07:43 | disposition home or self-care (01) ==
PROVIDERS: PCP Family Medicine Adolescent Medicine; Visit Provider Internal Medicine Hematology & Oncology
DX: R79.89 Other specified abnormal findings of blood chemistry (principal); K76.0 Fatty (change of) liver, not elsewhere classified
CPT/HCPCS: 76700

== ENCOUNTER 2023-11-12 05:54 | Day surgery (SDC) | payer OTHER, SELFPAY ==
[2023-09-29 12:04] VITALS: BMI 31.4
[2023-11-06 10:20] VITALS: BMI 31.1
[2023-11-12 06:21] VITALS: BP 135/90; PULSE 63; RESP 14; TEMP 36.8; O2SAT 98
--- NOTE | 2023-11-12 07:17 | PM.HPGS ---
History of Present Illness History of Present Illness Consent: Risks, benefits, and alternatives have been discussed and questions answered. Patient agrees to proceed with procedure. Chief complaint: Personal HX of colon cancer Narrative: Hola Armstrong is a 53 year old male who had a colon cancer resected from the descending colon. A carcinoma was identified and resected 1 year ago. Patient continues to notice small amount of blood in his stools. He continues to have loose stools. His weight has remained stable. Review of Systems Review of Systems: All systems reviewed & are unremarkable except as noted in HPI and below PMFSH Past Medical History Medical History Colonic mass Essential (primary) hypertension Hypothyroidism, unspecified Mixed hyperlipidemia Rectal bleeding Type 2 diabetes mellitus without complications Surgical History Surgical History History of fusion of cervical spine History of partial colectomy (10/2022) Laparoscopic sigmoid colectomy with colorectal anastomosis, da Samira assisted on 11/13/22 History of surgery on arm right bicep repair Previous back surgery Family History Family History Father Acute myocardial infarction Cerebrovascular accident Depression Diabetes mellitus Heart disease Hypertension Sibling Acute myocardial infarction Cerebrovascular accident Depression Heart disease Hypertension Sibling Depression Hypertension Mother Diabetes mellitus Hypertension Social History Social History Smoking status: Former smoker Tobacco type: cigars Second hand tobacco smoke exposure: Yes Additional smoking assessment comments: 5 cigars a day Alcohol intake: current Drinks per week: 2 Alcohol use details: 1 drink monthly Substance use: never Substance use type: does not use Lack of Transportation: No Lack of Food: Never True Current Housing: I Have Housing Concerned About Future Housing: No Difficulty Paying Gas/Electric Bills: No Difficulty Paying for Meds: No Currently Unemployed: No Education: Don't Know Difficulty w/ Childcare or Family Care: No Living arrangements: with family Occupation/Education: occupation Gender identity (if verbalized by the patient): Male Sexual Orientation (if Verbalized by the Patient): Straight or Heterosexual Spiritual care concerns: No Agree to blood products: Yes Meds Home Medications and Allergies Home Medications Medication Instructions Recorded Confirmed Type levothyroxine 200 mcg tablet 200 mcg PO DAILY 11/06/23 11/12/23 History metformin 500 mg tablet,extended 500 mg PO DAILY 11/06/23 11/12/23 History release 24 hr Allergies Allergy/AdvReac Type Severity Reaction Status Date / Time naproxen Allergy Mild Hives Verified 11/12/23 06:18 celecoxib Allergy Unknown Hives Verified 11/12/23 06:18 oxycodone Allergy Unknown RASH Verified 11/12/23 06:18 Vital Signs Vital Signs - 24 hr 11/12/23 06:21 Temperature 98.2 F Pulse Rate 63 Respiratory Rate 14 Blood Pressure 135/90 Pulse Oximetry 98 Oxygen Delivery Room Air Exam Narrative: Physical exam reveals patient to be alert. Vital signs stable. HEENT exam is unremarkable. Patient is anicteric. Lungs are clear to auscultation and percussion. His without murmur or extra sounds. Abdomen bowel sounds are present soft nontender with no organomegaly. Digital external rectal exam is normal. Assessment and Plan Assessment and plan (1) Adenocarcinoma of sigmoid colon: Code(s): C18.7 - Malignant neoplasm of sigmoid colon Status: Acute Assessment and Plan: Patient has a history of carcinoma of the sigmoid colon resected 1 year ago. Patient is to notice a sm
--- NOTE | 2023-11-12 07:27 | WPDANESEPPF ---
Anes - Initial Pre Proc Eval Procedure: Operation Date: 11/12/23 07:30 Proposed Procedures p Diagnostic Colonoscopy - Aj Ruth MD Date/Time: 11/12/23 07:27 Surgeon: Aj Ruth MD Pre Op Diagnosis: Personal HX of colon cancer Patient Data Age: 53 Gender: M Height: 1.85 m Weight: 105.45 kg Last Vital Signs Temp 36.8 C 11/12/23 06:21 Pulse 63 11/12/23 06:21 Resp 14 11/12/23 06:21 BP 135/90 11/12/23 06:21 Pulse Ox 98 11/12/23 06:21 O2 Del Method Room Air 11/12/23 06:21 Allergies Allergy/AdvReac Type Severity Reaction Status Date / Time naproxen Allergy Mild Hives Verified 11/12/23 06:18 celecoxib Allergy Unknown Hives Verified 11/12/23 06:18 oxycodone Allergy Unknown RASH Verified 11/12/23 06:18 Home Medications Medication Instructions Recorded Confirmed Type levothyroxine 200 mcg tablet 200 mcg PO DAILY 11/06/23 11/12/23 History metformin 500 mg tablet,extended 500 mg PO DAILY 11/06/23 11/12/23 History release 24 hr Patient hx anesthesia problems: none Family hx anesthesia problems: none Results Review: All pre-operative results and documents have been reviewed as part of the pre-operative evaluation. [facility] Past Medical History Medical History Colonic mass Essential (primary) hypertension Hypothyroidism, unspecified Mixed hyperlipidemia Rectal bleeding Type 2 diabetes mellitus without complications Surgical History Surgical History History of fusion of cervical spine History of partial colectomy (10/2022) Laparoscopic sigmoid colectomy with colorectal anastomosis, da Samira assisted on 11/13/22 History of surgery on arm right bicep repair Previous back surgery Family History Family History Father Acute myocardial infarction Cerebrovascular accident Depression Diabetes mellitus Heart disease Hypertension Sibling Acute myocardial infarction Cerebrovascular accident Depression Heart disease Hypertension Sibling Depression Hypertension Mother Diabetes mellitus Hypertension Social History Social History Smoking status: Former smoker Tobacco type: cigars Second hand tobacco smoke exposure: Yes Additional smoking assessment comments: 5 cigars a day Alcohol intake: current Drinks per week: 2 Alcohol use details: 1 drink monthly Substance use: never Substance use type: does not use Lack of Transportation: No Lack of Food: Never True Current Housing: I Have Housing Concerned About Future Housing: No Difficulty Paying Gas/Electric Bills: No Difficulty Paying for Meds: No Currently Unemployed: No Education: Don't Know Difficulty w/ Childcare or Family Care: No Living arrangements: with family Occupation/Education: occupation Gender identity (if verbalized by the patient): Male Sexual Orientation (if Verbalized by the Patient): Straight or Heterosexual Spiritual care concerns: No Agree to blood products: Yes Anes - Eval Final PreProcedure Day of Procedure 11/12/23 07:27 Patient weight: overweight Heart: regular rate and rhythm Lungs: clear to auscultation Airway: Mallampati scale class II Neurological: alert and oriented Last oral intake: >/= 8 hours ASA classification: III Emergent: no Anesthetic plan: proceed Anesthesia type and monitoring: general GIVS and standard monitoring Results Review: All pre-operative results and documents have been reviewed as part of the pre-operative evaluation. Informed Consent: The patient's anesthetic plan and its attendant risks and benefits were discussed with the patient/family/POA. Questions were solicited and answers provided to the satisfaction of the patient/family/POA.
[2023-11-12] MEDS: LACTATED RINGERS 1,000 ML 150 ML IV CONT (07:29)
[2023-11-12] MEDS: SIMETHICONE ORAL SUSPENSION 20 MG/0.3 ML 30 ML BOTTLE 0.6 ML IRRIGATION (07:41)
[2023-11-12 07:53] VITALS: BP 119/81; PULSE 58; RESP 18; O2SAT 96
[2023-11-12 08:03] VITALS: BP 133/90; PULSE 54; RESP 18; O2SAT 97
--- NOTE | 2023-11-12 08:06 | WPDANESPN ---
Anes - Prog Note Post-Op Date/Time: 11/12/23 08:06 Cardiovascular status: normal Respiratory status: normal Airway patency: baseline Mental status: baseline Post-Op hydration status: normal Vital Signs: Last Vital Signs Temp 36.8 C 11/12/23 06:21 Pulse 58 L 11/12/23 07:53 Resp 18 11/12/23 07:53 BP 119/81 11/12/23 07:53 Pulse Ox 96 11/12/23 07:53 O2 Del Method Room Air 11/12/23 07:53 Pain Score (VAS): 0 I/O: Intake & Output 11/11/23 11/12/23 11/12/23 23:59 07:59 15:59 Intake Total 500 Balance 500 Patient Feedback: Patient satisfied with anesthetic care.
[2023-11-12 08:13] VITALS: BP 144/99; PULSE 51; RESP 16; O2SAT 98
[2023-11-12 08:42] LABS: Glucose Point of Care 121 mg/dl (65-105)
== END 2023-11-12 08:20 | disposition home or self-care (01) ==
PROVIDERS: PCP Family Medicine Adolescent Medicine; Visit Provider Internal Medicine Gastroenterology
PROC: 0DJD8ZZ Inspection of Lower Intestinal Tract, Via Natural or Artificial Opening Endoscopic (ICD-10-PCS; CPT 45378; principal; 2023-11-12 07:30)
DX: Z85.038 Personal history of other malignant neoplasm of large intestine (principal); D12.5 Benign neoplasm of sigmoid colon; K64.8 Other hemorrhoids
CPT/HCPCS: 45380

== ENCOUNTER 2023-11-12 10:26 | Outpatient (NON) | payer OTHER, SELFPAY | END 2023-11-12 10:27 | disposition home or self-care (01) | PROVIDERS: PCP Family Medicine Adolescent Medicine; Visit Provider Internal Medicine Gastroenterology | DX: Z48.815 Encounter for surgical aftercare following surgery on the digestive system (principal) | CPT/HCPCS: 88305 ==

== ENCOUNTER 2023-12-03 15:09 | Outpatient (CLI) | payer SELFPAY ==
--- NOTE | ~2023-12-03 | XR_ITS ---
EXAMINATION: XR foot LT min 3V DATE: 12/03/2023 15:57 INDICATION: Left foot pain. TECHNIQUE: 6 views of left foot were obtained. COMPARISON: Left foot radiographs 10/29/2011 FINDINGS: There is mild hallux valgus. No fracture. There is mild osteoarthritis of some of the inter phalangeal joints. There are enthesophytes at the posterior and plantar aspects of calcaneal tuberosi ty. IMPRESSION: 1. Mild polyarticular osteoarthritis. 2. Mild hallux valgus. Reviewed, dictated and finalized at location A.
== END 2023-12-03 15:10 ==
DX: M19.072 Primary osteoarthritis, left ankle and foot (principal); M20.12 Hallux valgus (acquired), left foot
CPT/HCPCS: 73630

== ENCOUNTER 2024-02-23 13:14 | Outpatient (CLI) | payer OTHER, SELFPAY ==
[2024-02-23 13:28] LABS: Basophils Percent Auto 0.3 % (0.2-1.2); Eosinophils Absolute Auto 0.1 K/mm3 (0-0.3); Hematocrit 48.2 % (42.0-52.0); Hemoglobin 16.1 g/dL (14.0-18.0); Immature Granulocyte Absolute 0.02 K/mm3 (0.00-0.031); Immature Granulocyte Percent A 0.2 % (0-0.5); Lymphocytes Absolute Auto 2.89 K/mm3 (0.9-3.2); Lymphocytes Percent Auto 32.3 % (18.3-44.2); Mean Corpuscular HGB Conc 33.4 g/dl (32-36); Mean Corpuscular Hemoglobin 29.4 pg (26-34); Mean Corpuscular Volume 88.1 fl (80-100); Mean Platelet Volume 10.3 fl (7.4-10.4); Monocytes Absolute Auto 0.8 K/mm3 (0.1-0.6); Monocytes Percent Auto 8.5 % (2.6-8.5); Neutrophils Absolute Auto 5.2 K/mm3 (1.3-6.7); Neutrophils Percent Auto 57.7 % (45.5-73.1); Platelet Count Result 218 k/mm3 (150-375); Red Blood Count 5.47 M/mm3 (4.6-6.20); Red Cell Distribution Width 13.2 % (11.5-14.5)
[2024-02-23 13:47] LABS: Alanine Aminotransferase 37 U/L (6-50); Alkaline Phosphatase 70 U/L (38-126); Anion Gap 13 mmol/L (4-12); Aspartate Amino Transferase 46 U/L (17-59); Bilirubin,Total 0.6 mg/dL (0.2-1.3); Blood Urea Nitrogen 10 mg/dL (9-20); Calcium 9.8 mg/dL (8.4-10.2); Carbon Dioxide 31 mmol/L (22-30); Chloride 98 mmol/L (98-107); Estimated Glomerular Filt Rate > 60; Glucose 100 mg/dL (65-110); Potassium 4.5 mmol/L (3.4-5.0); Sodium 142 mmol/L (137-145)
[2024-02-23 14:17] LABS: Carcinoembryonic Antigen 0.8 ng/mL (0.0-3.0)
== END 2024-02-23 13:15 | disposition home or self-care (01) ==
LOC: ANHLAB 13:16
PROVIDERS: PCP Family Medicine Adolescent Medicine; Visit Provider Internal Medicine Hematology & Oncology
DX: C18.9 Malignant neoplasm of colon, unspecified (principal)
CPT/HCPCS: 36415; 80053; 82378; 85025

== ENCOUNTER 2024-02-27 15:09 | Outpatient (CLI) | payer OTHER, SELFPAY ==
--- NOTE | ~2024-02-27 | CT_ITS ---
EXAMINATION: CT chest abdomen pelvis w con DATE: 02/27/2024 15:48 INDICATION: Malignant neoplasm of colon. TECHNIQUE: Computed tomography (CT) of the chest, abdomen, and pelvis was performed with 100 mL Omnip aque 350 intravenous contrast. Automated exposure control and iterative reconstruction technique were employed. The dose-length product was 826.37 mGy-cm. COMPARISON: CT abdomen and pelvis 03/19/2023 FINDINGS: CHEST CT: The visualized portions of lung bases demonstrate minimal atelectasis. No pleural effusion. The heart size is normal. No pericardial effusion. There are coronary artery calcifications. There is mild ramya ateral gynecomastia. There are changes of anterior fusion procedure in cervical spine. There is mild thoracic spondylosis. ABDOMEN/PELVIS CT: There is a chronic 5 mm mass in right hepatic lobe that was hyperenhancing on the prior CT, likely a hemangioma or focal nodular hyperplasia. The gallbladder, spleen, pancreas, adrenal glands, and kidne ys are normal. There is an anastomosis in the sigmoid colon. The heart size is normal. The appendix i s normal. There are no dilated loops of bowel. There are no pathologically enlarged lymph nodes. Ther e is no free intraperitoneal fluid. There are changes of anterior and posterior fusion procedures fro m L4 to S1. There is a disc replacement at L3-L4. IMPRESSION: 1. No evidence of metastatic disease. Reviewed, dictated and finalized at location A.
== END 2024-02-27 15:10 | disposition home or self-care (01) ==
LOC: ANHIMG 15:16
PROVIDERS: PCP Family Medicine Adolescent Medicine; Visit Provider Internal Medicine Hematology & Oncology
DX: C18.9 Malignant neoplasm of colon, unspecified (principal)
CPT/HCPCS: 71260; 74177; Q9967

== ENCOUNTER 2024-05-31 12:20 | Outpatient (CLI) | payer OTHER, SELFPAY ==
[2024-05-31 12:35] LABS: Basophils Absolute Auto 0.1 K/mm3 (0.0-0.1); Basophils Percent Auto 0.6 % (0.2-1.2); Eosinophils Absolute Auto 0.3 K/mm3 (0-0.3); Hematocrit 47.6 % (42.0-52.0); Immature Granulocyte Absolute 0.01 K/mm3 (0.00-0.031); Immature Granulocyte Percent A 0.1 % (0-0.5); Lymphocytes Absolute Auto 4.24 K/mm3 (0.9-3.2); Lymphocytes Percent Auto 47.4 % (18.3-44.2); Mean Corpuscular HGB Conc 33.6 g/dl (32-36); Mean Corpuscular Hemoglobin 28.8 pg (26-34); Mean Corpuscular Volume 85.8 fl (80-100); Mean Platelet Volume 9.9 fl (7.4-10.4); Monocytes Absolute Auto 0.7 K/mm3 (0.1-0.6); Monocytes Percent Auto 7.7 % (2.6-8.5); Neutrophils Absolute Auto 3.7 K/mm3 (1.3-6.7); Neutrophils Percent Auto 41.2 % (45.5-73.1); Platelet Count Result 230 k/mm3 (150-375); Red Blood Count 5.55 M/mm3 (4.6-6.20); Red Cell Distribution Width 13.2 % (11.5-14.5); White Blood Count 8.9 K/mm3 (4.5-10.0)
[2024-05-31 13:24] LABS: Alanine Aminotransferase 42 U/L (6-50); Alkaline Phosphatase 79 U/L (38-126); Anion Gap 9 mmol/L (4-12); Aspartate Amino Transferase 39 U/L (17-59); Bilirubin,Total 1.1 mg/dL (0.2-1.3); Blood Urea Nitrogen 12 mg/dL (9-20); Calcium 9.8 mg/dL (8.4-10.2); Carbon Dioxide 29 mmol/L (22-30); Chloride 102 mmol/L (98-107); Estimated Glomerular Filt Rate > 60; Glucose 102 mg/dL (65-110); Potassium 4.8 mmol/L (3.4-5.0); Sodium 140 mmol/L (137-145)
[2024-05-31 13:54] LABS: Carcinoembryonic Antigen 0.9 ng/mL (0.0-3.0)
== END 2024-05-31 12:21 | disposition home or self-care (01) ==
LOC: ANHLAB 12:20
PROVIDERS: PCP Family Medicine Adolescent Medicine; Visit Provider Internal Medicine Hematology & Oncology
DX: C18.9 Malignant neoplasm of colon, unspecified (principal)
CPT/HCPCS: 36415; 80053; 82378; 85025

== ENCOUNTER 2024-09-24 10:37 | Outpatient (CLI) | payer OTHER, SELFPAY ==
[2024-09-24 10:56] LABS: Basophils Absolute Auto 0.1 K/mm3 (0.0-0.1); Basophils Percent Auto 0.6 % (0.2-1.2); Eosinophils Absolute Auto 0.2 K/mm3 (0-0.3); Eosinophils Percent Auto 2.4 % (0-4.4); Hematocrit 46.8 % (42.0-52.0); Hemoglobin 15.7 g/dL (14.0-18.0); Immature Granulocyte Absolute 0.01 K/mm3 (0.00-0.031); Immature Granulocyte Percent A 0.1 % (0-0.5); Lymphocytes Absolute Auto 3.47 K/mm3 (0.9-3.2); Lymphocytes Percent Auto 43.4 % (18.3-44.2); Mean Corpuscular HGB Conc 33.5 g/dl (32-36); Mean Corpuscular Hemoglobin 28.9 pg (26-34); Mean Corpuscular Volume 86.2 fl (80-100); Mean Platelet Volume 9.5 fl (7.4-10.4); Monocytes Absolute Auto 0.7 K/mm3 (0.1-0.6); Monocytes Percent Auto 8.5 % (2.6-8.5); Neutrophils Absolute Auto 3.6 K/mm3 (1.3-6.7); Platelet Count Result 200 k/mm3 (150-375); Red Blood Count 5.43 M/mm3 (4.6-6.20); Red Cell Distribution Width 13.1 % (11.5-14.5)
--- OUTSIDE RECORDS SUMMARY | 2024-09-24 11:34 | XMS_ITS | Encounter Summary ---
Author Organization [facility] Address [address] [place] [address] Care Team Providers Care Data Warehousing Specialist Name Role Phone Alfonso Schwartz MD Primary Care Provider +1- [phone] Encounter Details Date Type Department Care Team (Latest Contact Info) Description 12/06/2008 Outpatient [facility] Erica Villanueva MD 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 Gender Identity Not on file Sexual Orientation Not on file documented as of this encounter Plan of Treatment Upcoming Encounters Date Type Department Care Team (Late st Contact Info) Description 09/30/2024 3:30 PM CDT Office Visit [facility] Oncology and Hematology - Charli [address] [place] [address] Luis Nick MD [address] [facility] [address] [place] [address] documented as of this encounter Procedures Procedure Name Priority Date/Time Associated Diagnosis Comments XR LUMBAR SPINE 2 OR 3 VW Routine 12/06/2008 10:08 AM CDT documented in this encounter Results * XR LUMBAR SPINE 2 OR 3 VW (12/06/2008 10:08 AM CDT) Anatomical Region Laterality Modality Spine Other 12/06/2008 10:0 8 AM CDT Narrative 12/06/2008 3:08 PM CDT [address] [place], [place] [address] Admit Date: 12/06/2008 JESSICA LESLIE Sex: Latanya Admit Prov: ERICA VILLANUEVA Date: 1970 Primary Care Prov: PCP, UNKNOWN CMRN: [id number] Room: [facility]: [address] [place] [address] IMAGING SERVICES Ordering Prov: N/A Accession Number: [id number] Interpretation TWO VIEWS OF THE LUMBAR SPINE. 12/06/08 History: Back pain. Findings: Since the previous examination of November 08, 2008, there has been no significant interval change in the position of the plate, screw and disc prosthesis. The spine is normally aligned without subluxation. IMPRESSION: Negative exam. . Dictated by: VASILIY NUNEZ 12/06/2008 10:17 Electronically signed by: VASILIY NUNEZ 12/06/2008 15:07 Transcribed: 12/06/2008 11:37 Procedure Note Vasiliy Nunez MD - 12/06/2008 [address] [place], [place] [address] Admit Date: 12/06/2008 JESSICA LESLIE Sex: Latanya Admit Prov: ERICA VILLANUEVA Date: 1970 Primary Care Prov: PCP, UNKNOWN CMRN: [id number] Room: [facility]: [id number] IMAGING SERVICES Ordering Prov: N/A Interpretation TWO VIEWS OF THE LUMBAR SPINE. 12/06/08 History: Back pain. Findings: Since the previous examination of November 08, 2008, there hasbeen no significant interval change in the position of the plate, screw anddisc prosthesis. The spine is normally aligned without subluxation. IMPRESSION: Negative exam. . Dictated by: VASILIY NUNEZ 12/06/2008 10:17 Electronically signed by: VASILIY NUNEZ 12/06/2008 15:07 Transcribed: 12/06/2008 11:37 us Erica Villanueva MD DIAGNOSTIC IMAGING ORDERABLES F inal Result documented in this encounter Visit Diagnoses Diagnosis Displacement of lumbar intervertebral disc without myelopathy documented in this encounter Care Teams Data Warehousing Specialist Relationship Specialty Start Date End Date Alfonso Schwartz MD PCP - General Family Practice 12/17/22 documented as of this encounter
--- OUTSIDE RECORDS SUMMARY | 2024-09-24 11:34 | XMS_ITS | Encounter Summary ---
Author Organization [facility] Address 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 Gender Identity Not on file Sexual Orientation Not on file documented as of this encounter Plan of Treatment Upcoming Encounters Date Type Department Care Team (Late st Contact Info) Description 09/30/2024 3:30 PM CDT Office Visit [facility] Oncology and Hematology - Charli [address] [place] [address] Luis Nick MD [address] [facility] [address] [place] [address] documented as of this encounter Procedures Procedure Name Priority Date/Time Associated Diagnosis Comments XR LUMBAR SPINE 2 OR 3 VW Timed Study 11/08/2008 11:01 AM CDT documented in this encounter Results * XR LUMBAR SPINE 2 OR 3 VW (11/08/2008 11:01 AM CDT) Anatomical Region Laterality Modality Spine Other 11/08/2008 11:0 1 AM CDT Narrative 11/08/2008 1:36 PM CDT [place] [address] [place], [place] [address] Admit Date: 11/08/2008 JESSICA LESLIE Sex: M Admit Prov: ERICA VILLANUEVA Date: 1970 Primary Care Prov: PCP, UNKNOWN CMRN: [id number] Room: [facility]: [address] [place] [address] IMAGING SERVICES Ordering Prov: N/A Accession Number: [id number] Interpretation CLINICAL INDICATION: 38-year-old man, postop. REPORT: STANDING AP AND LATERAL RADIOGRAPHS OF THE LUMBAR SPINE DATED 11/08/2008 COMPARISON: 10/17/2008 FINDINGS: There is mild curvature of the lower lumbar spine, convex to the left. Anterior lumbar spine fusion hardware is noted from L5-S1 with an intervening bone graft plug. The hardware is intact. There is no acute fracture. The intervertebral disc spaces are otherwise within normal limits. IMPRESSION: Status post anterior lumbar spine fusion from L5-S1. . Dictated by: BRENDEN THOMAS 11/08/2008 12:45 Electronically signed by: BRENDEN THOMAS 11/08/2008 13:35 Transcribed: 11/08/2008 12:49 DKT Procedure Note Brenden Thomas - 11/08/2008 [place] [address] [place], [place] [address] Admit Date: 11/08/2008 JESSICA LESLIE Sex: M Admit Prov: ERICA VILLANUEVA Date: 1970 Primary Care Prov: PCP, UNKNOWN CMRN: [id number] Room: [facility]: [address] [place] [address] IMAGING SERVICES Ordering Prov: N/A Interpretation CLINICAL INDICATION: 38-year-old man, postop. REPORT: STANDING AP AND LATERAL RADIOGRAPHS OF THE LUMBAR SPINEDATED 11/08/2008 COMPARISON: 10/17/2008 FINDINGS: There is mild curvature of the lower lumbar spine, convexto the left. Anterior lumbar spine fusion hardware is noted from L5-S1 withan intervening bone graft plug. The hardware is intact. There is noacute fracture. The intervertebral disc spaces are otherwise withinnormal limits. IMPRESSION: Status post anterior lumbar spine fusion from L5-S1. . Dictated by: BRENDEN THOMAS 11/08/2008 12:45 Electronically signed by: BRENDEN THOMAS 11/08/2008 13:35 Transcribed: 11/08/2008 12:49 DKT us Erica Villanueva MD DIAGNOSTIC IMAGING ORDERABLES F inal Result documented in this encounter Visit Diagnoses Diagnosis Displacement of lumbar intervertebral disc without myelopathy documented in this encounter Care Teams Knitting Demonstrator Relationship Specialty Start Date End Date Alfonso [place] MD PCP - General Family Practice 12/17/22 documented as of this encounter
--- OUTSIDE RECORDS SUMMARY | 2024-09-24 11:34 | XMS_ITS | Encounter Summary ---
Author Organization [facility] Address 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 Gender Identity Not on file Sexual Orientation Not on file documented as of this encounter Plan of Treatment Upcoming Encounters Date Type Department Care Team (Late st Contact Info) Description 09/30/2024 3:30 PM CDT Office Visit [facility] Oncology and Hematology - Charli [address] [place] [address] [facility] [address] [place] [address] Luis Nick MD [address] [facility] [address] [place] [address] documented as of this encounter Procedures Procedure Name Priority Date/Time Associated Diagnosis Comments URINALYSIS WITH REFLEX CULTURE Routine 11/08/2008 2:11 PM CDT URINALYSIS W/REFLEX MICROSCOPIC Routine 11/08/2008 2:11 PM CDT documented in this encounter Results * URINALYSIS (11/08/2008 2:11 PM CDT) PH UA 5.5 5.0 - 8.0 [facility] KETONES UA Negative Negative [facility] CLARITY UA Clear Clear [facility] PROTEIN UA Negative Negative [facility] BILIRUBIN UA Negative Negative [facility] LEUKOCYTE ESTERASE UA Negative Negative [facility] SPECIFIC GRAVITY UA 1.011 1.001 - 1.035 [facility] BLOOD UA Negative Negative [facility] GLUCOSE UA Negative Negative [facility] COLOR UA Yellow [facility] NITRITE UA Negative Negative [facility] UROBILINOGEN UA <1 <=1 mg/dL [facility] 11/08/2008 2:11 PM CDT 11/08/2008 2:21 PM CDT Go Avalos MD URINE ORDERABLES Final Result Performing Organization Address [facility] Phone Number INTERFACE SYSTEM Refer to clinic/hospital department [facility] CLIA# [id number] [address] [place] [address] * URINALYSIS WITH REFLEX CULTURE (11/08/2008 2:11 PM CDT) Pathologist [facility] URINE CULTURE ORDER Not indicated [facility] Comment: Criteria for a reflex culture include one or more of the following: Abnormal nitrite, leukocyte esterase, WBCs or RBCs. Lack of qualifying criteria does not exclude the possiblity of a urinary tract infection. Dilute urine, drug interference, etc. may decrease the sensitivity of the criteria analytes. Urine specimen (specimen) 11/08/2008 2:11 PM CDT 11/08/2008 2:21 PM CDT us Go Avalos MD URINE ORDERABLES Final Result Performing Organization Address [facility] de Phone Number INTERFACE SYSTEM Refer to clinic/hospital department [facility] CLIA# [id number] [address] [place] [address] documented in this encounter Visit Diagnoses Diagnosis Urinary frequency documented in this encounter Care Teams Environmental Health And Safety Manager Relationship Specialty Start Date End Date Alfonso [place] MD PCP - General Family Practice 12/17/22 documented as of this encounter
--- OUTSIDE RECORDS SUMMARY | 2024-09-24 11:34 | XMS_ITS | Encounter Summary ---
Author Organization [facility] Address 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 Gender Identity Not on file Sexual Orientation Not on file documented as of this encounter Plan of Treatment Upcoming Encounters Date Type Department Care Team (Late st Contact Info) Description 09/30/2024 3:30 PM CDT Office Visit [facility] Oncology and Hematology - Charli [address] [place] [address] [address] [place] [address] Luis Nick MD [address] [facility] [address] [place] [address] documented as of this encounter Procedures Procedure Name Priority Date/Time Associated Diagnosis Comments HEMOGLOBIN AND HEMATOCRIT Routine 10/18/2008 5:32 AM CDT HEMOGLOBIN AND HEMATOCRIT Timed Study 10/17/2008 7:00 PM CDT HEMOGLOBIN AND HEMATOCRIT Stat 10/17/2008 1:00 PM CDT XR LUMBAR SPINE 1 VW Routine 10/17/2008 11:36 AM CDT XR ABDOMEN 1 VW Routine 10/17/2008 11:30 AM CDT XR LUMBAR SPINE 1 VW Routine 10/17/2008 10:56 AM CDT XR FLUORO LESS THAN 1 HOUR Routine 10/17/2008 7:50 AM CDT HEMOGLOBIN AND HEMATOCRIT Routine 10/13/2008 4:05 PM CDT TYPE AND CROSSMATCH Routine 10/13/2008 3 :57 PM CDT documented in this encounter Results * (ABNORMAL) HEMOGLOBIN AND HEMATOCRIT (10/18/2008 5:32 AM CDT) HEMATOCRIT 36.3(L) 40.0 - 48.0 % [facility] HEMOGLOBIN 12.0(L) 13.6 - 16.5 g/dL [facility] Blood specimen (specimen) 10/18/2008 5:32 AM CDT 10/18/2008 6:02 AM CDT us Erica Finney MD HEMATOLOGY ORDERABLES Final Res ult INTERFACE SYSTEM Refer to clinic/hospital department [facility] CLIA# [id number] [address] [place] [address] * (ABNORMAL) HEMOGLOBIN AND HEMATOCRIT (10/17/2008 7:00 PM CDT) HEMOGLOBIN 13.4(L) 13.6 - 16.5 g/dL [facility] HEMATOCRIT 40.0 40.0 - 48.0 % [facility] Blood specimen (specimen) 10/17/2008 7:00 PM CDT 10/17/2008 7:04 PM CDT us Erica Finney MD HEMATOLOGY ORDERABLES Final Res ult Performing Organization Address [facility] de Phone Number INTERFACE SYSTEM Refer to clinic/hospital department [facility] CLIA# [id number] [address] [place] [address] * HEMOGLOBIN AND HEMATOCRIT (10/17/2008 1:00 PM CDT) HEMOGLOBIN 13.8 13.6 - 16.5 g/dL [facility] HEMATOCRIT 40.5 40.0 - 48.0 % [facility] Blood specimen (specimen) 10/17/2008 1:00 PM CDT 10/17/2008 1:03 PM CDT us Erica Finney MD HEMATOLOGY ORDERABLES Final Res ult Performing Organization Address [facility] Phone Number INTERFACE SYSTEM Refer to clinic/hospital department [facility] CLIA# [id number] [address] [place] [address] * XR LUMBAR SPINE 1 VW (10/17/2008 11:36 AM CDT) Anatomical Region Laterality Modality Spine Other 10/17/2008 11:3 6 AM CDT Narrative 10/17/2008 5:29 PM CDT [facility] [address] [place], [place] [address] Admit Date: 10/17/2008 RHONDAJESSICA MARCUM Sex: M Admit Prov: ERICA FINNEY Date: 1970 Primary Care Prov: PCP, UNKNOWN CMRN: [id number] Room: [address] [place] [address] SSN: [id number] IMAGING SERVICES Ordering Prov: N/A Accession Number: [id number] Interpretation LUMBAR SPINE SINGLE VIEW 10/17/2008 History: Spine surgery Findings: Since preceding radiograph at 1100 hours, patient has undergone anterior spinal fusion and discectomy at L5-S1 level. Interbody bone graft is in place. Metal plate and screws are in place at L5-S1 level. Alignment appears normal. IMPRESSION: Status post anterior interbody fusion and discectomy at L5-S1 level. . Dictated by: JOSE ROBERTO CAT 10/17/2008 13:12 Electronically signed by: JOSE ROBERTO CAT 10/17/2008 17:28 Transcribed: 10/17/2008 16:24 AMK Procedure Note Jose Roberto Cat MD - 10/17/2008 [place] [address] [place], [place] [address] Admit Date: 10/17/2008 RHONDAJESSICA MARCUM Sex: M Admit Prov: ERICA FINNEY Date: 1970 Primary Care Prov: PCP, UNKNOWN CMRN: [id number] Room: [address] [place] [address] SSN: [id number] IMAGING SERVICES Ordering Prov: N/A Interpretation LUMBAR SPINE SINGLE VIEW 10/17/2008 History: Spine surgery Findings: Since preceding radiograph at 1100 hours, patient hasundergone anterior spinal fusion and discectomy at L5-S1 level. Interbody bonegraft is in place. Metal plate and screws are in place at L5-S1 level.Alignment appears normal. IMPRESSION: Status post anterior interbody fusion and discectomy at L5-Y6qcciy. . Dictated by: JOSE ROBERTO CAT 10/17/2008 13:12 Electronically signed by: JOSE ROBERTO CAT 10/17/2008 17:28 Transcribed: 10/17/2008 16:24 AMK us Erica Finney MD DIAGNOSTIC IMAGING ORDERABLES F inal Result * XR ABDOMEN 1 VW (10/17/2008 11:30 AM CDT) Anatomical Region Laterality Modality Abdomen Other 10/17/2008 11:3 0 AM CDT Narrative 10/17/2008 11:41 AM CDT [place] [address] [place], [place] [address] Admit Date: 10/17/2008 MARIAMA JESSICA Sex: M Admit Prov: ERICA FINNEY Date: 1970 Primary Care Prov: PCP, UNKNOWN CMRN: [id number] Room: [place] [address] SSN: [id number] IMAGING SERVICES Ordering Prov: N/A Accession Number: [id number] Interpretation Abdomen portable AP, 10/17/2008 at 1130 hours Indication: Rule out retained surgical instrument Findings: L5-S1 fusion plate and screw is seen. No other radiopaque density is seen. Impression: No retained metallic surgical instrument. . Dictated by: QUE GREEN 10/17/2008 11:39 Electronically signed by: QUE GREEN 10/17/2008 11:40 Procedure Note Que Green MD - 10/17/[address] [address] Admit Date: 10/17/2008 JESSICA LESLIE Sex: M Admit Prov: ERICA FINNEY Date: 1970 Primary Care Prov: PCP, UNKNOWN CMRN: [id number] Room: [place] [address] SSN: [id number] IMAGING SERVICES Ordering Prov: N/A Interpretation Abdomen portable AP, 10/17/2008 at 1130 hours Indication: Rule out retained surgical instrument Findings: L5-S1 fusion plate and screw is seen. No other radiopaquedensity is seen. Impression: No retained metallic surgical instrument. . Dictated by: QUE GREEN 10/17/2008 11:39 Electronically signed by: QUE GREEN 10/17/2008 11:40 us Erica Finney MD DIAGNOSTIC IMAGING ORDERABLES F inal Result * XR LUMBAR SPINE 1 VW (10/17/2008 10:56 AM CDT) Anatomical Region Laterality Modality Spine Other 10/17/2008 10:5 6 AM CDT Narrative 10/17/2008 11:02 AM CDT [place] [address] [place], [place] [address] Admit Date: 10/17/2008 JESSICA LESLIE Sex: M Admit Prov: ERICA FINNEY Date: 1970 Primary Care Prov: PCP, UNKNOWN CMRN: [id number] Room: [place] [address] SSN: [id number] IMAGING SERVICES Ordering Prov: N/A Accession Number: [id number] Interpretation Lumbar spine one view 10/17/2008. History: Surgery Findings: A single lateral view of lumbar spine was obtained. A probe is noted with tip projecting at L5-S1. . Dictated by: DANYA ORELLANA 10/17/2008 11:00 Electronically signed by: DANYA ORELLANA 10/17/2008 11:01 Procedure Note Danya Walsh MD - 10/17/[address] [address] Admit Date: 10/17/2008 MARIAMA JESSICA Sex: M Admit Prov: ERICA FINNEY Date: 1970 Primary Care Prov: PCP, UNKNOWN CMRN: [id number] Room: [place] [address] SSN: [id number] IMAGING SERVICES Ordering Prov: N/A Interpretation Lumbar spine one view 10/17/2008. History: Surgery Findings: A single lateral view of lumbar spine was obtained. A probeis noted with tip projecting at L5-S1. . Dictated by: DANYA ORELLANA 10/17/2008 11:00 Electronically signed by: DANYA ORELLANA 10/17/2008 11:01 us Erica Finney MD DIAGNOSTIC IMAGING ORDERABLES F inal Result * XR FLUORO < 1 HOUR (10/17/2008 7:50 AM CDT) Anatomical Region Laterality Modality Other 10/17/2008 7:50 AM CDT Narrative 10/18/2008 7:47 AM CDT [address] [address] Admit Date: 10/17/2008 JESSICA LESLIE Sex: M Admit Prov: ERICA FINNEY Date: 1970 Primary Care Prov: PCP, UNKNOWN CMRN: [id number] Room: [address] [place] [address] SSN: [id number] IMAGING SERVICES Ordering Prov: ERICA FINNEY Accession Number: [id number] Interpretation Fluoroscopic guidance was used by the surgeon to assist with performance of this intra-operative procedure. Please refer to surgeon s operative report for specific details. Dictated by: RADIOLOGY, DEPARTMENT O Electronically signed by: RADIOLOGY, DEPARTMENT 10/18/2008 07:47 Transcribed: 10/17/2008 16:31 AMK Procedure Note Radiology, Radiologist - 10/18/[address] [address] Admit Date: 10/17/2008 JESSICA LESLIE Sex: M Admit Prov: ERICA FINNEY Date: 1970 Primary Care Prov: PCP, UNKNOWN CMRN: [id number] Room: [address] [place] [address] SSN: [id number] IMAGING SERVICES Ordering Prov: ERICA FINNEY Skip Interpretation Fluoroscopic guidance was used by the surgeon to assist withperformance of this intra-operative procedure. Please refer to surgeon s operativereport for specific details. Dictated by: RADIOLOGY, DEPARTMENT O Electronically signed by: RADIOLOGY, DEPARTMENT 10/18/2008 07:47 Transcribed: 10/17/2008 16:31 AMK us Erica Finney MD DIAGNOSTIC IMAGING ORDERABLES F inal Result * HEMOGLOBIN AND HEMATOCRIT (10/13/2008 4:05 PM CDT) HEMOGLOBIN 16.1 13.6 - 16.5 g/dL [facility] HEMATOCRIT 46.8 40.0 - 48.0 % [facility] Blood specimen (specimen) 10/13/2008 4:05 PM CDT 10/13/2008 4:42 PM CDT us Erica Finney MD HEMATOLOGY ORDERABLES Final Res ult Performing Organization Address [facility] de Phone Number INTERFACE SYSTEM Refer to clinic/hospital department [facility] CLIA# [id number] [address] [place] [address] * TYPE AND CROSSMATCH (10/13/2008 3:57 PM CDT) HISTORY CHECK No Historical ABO/Rh [facility] SPECIMEN LIFE 3 days from OR date [facility] ABO/RH TYPE O Negative [facility] ANTIBODY SCREEN Negative [facility] Blood specimen (specimen) 10/13/2008 3:57 PM CDT Erica Finney MD BLOOD BANK ORDERABLES Edited Performing Organization Address [facility] Phone Number INTERFACE SYSTEM Refer to clinic/hospital department [facility] CLIA# [id number] [address] [place] [address] documented in this encounter Visit Diagnoses Diagnosis Displacement of intervertebral disc, site unspecified, without myelopathy documented in this encounter Care Teams Autocutter Relationship Specialty Start Date End Date Alfonso Schwartz MD PCP - General Family Practice 12/17/22 documented as of this encounter
--- OUTSIDE RECORDS SUMMARY | 2024-09-24 11:34 | XMS_ITS | Encounter Summary ---
Author Organization [facility] Address [address] [place] [address] Care Team Providers Care Assembler Billiard Table Name Role Phone Alfonso Schwartz MD Primary Care Provider +1- [phone] Encounter Details Date Type Department Care Team (Latest Contact Info) Description 02/22/2009 [facility]patient [facility] Erica Villanueva MD [address] [place] [address] Displacement of Lumbar Intervertebral Disc without Myelopathy Social History Tobacco Use Types Packs/Day Years Used Date Smoking Tobacco: Never Assessed Sex and Gender Information Value Date Recorded Sex Assigned at Not on file 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 Gender Identity Not on file Sexual Orientation Not on file documented as of this encounter Plan of Treatment Upcoming Encounters Date Type Department Care Team (Late st Contact Info) Description 09/30/2024 3:30 PM CDT Office Visit [facility] Oncology and Hematology - Charli [address] [place] [address] Luis Nick MD [address] [place] [address] documented as of this encounter Procedures Procedure Name Priority Date/Time Associated Diagnosis Comments XR LUMBAR SPINE 2 OR 3 VW Routine 02/22/2009 10:30 AM CDT documented in this encounter Results * XR LUMBAR SPINE 2 OR 3 VW (02/22/2009 10:30 AM CDT) Anatomical Region Laterality Modality Spine Other 02/22/2009 10:3 0 AM CDT Narrative 02/22/2009 6:16 PM CDT [address] [place] [address] Admit Date: 02/22/2009 JESSICA LESLIE Sex: M Admit Prov: ERICA VILLANUEVA Date: 1970 Primary Care Prov: PCP, UNKNOWN CMRN: [id number] Room: [facility]: [address] [place] [address] IMAGING SERVICES Ordering Prov: N/A Accession Number: [id number] Interpretation LUMBAR SPINE AP AND LATERAL VIEWS, 02/22/2009 HISTORY: Anterior spinal fusion and discectomy at L5-S1 level. FINDINGS: Metal plate and screws are in place anterior to the L5-S1 level. Interbody bone graft is present. Alignment at this level is normal. Hardware is intact. Higher lumbar levels appear normal. IMPRESSION: No significant change in appearance of anterior L5-S1 fusion since 01/04/2009. . Dictated by: JOSE ROBERTO MCKINNEY 02/22/2009 10:43 Electronically signed by: JOSE ROBERTO MCKINNEY 02/22/2009 18:14 Transcribed: 02/22/2009 14:32 [facility] Procedure Note Jose Roberto Mckinney MD - 02/22/2009 [address] [place], [place] [address] Admit Date: 02/22/2009 JESSICA LESLIE Sex: M Admit Prov: ERICA VILLANUEVA Date: 1970 Primary Care Prov: PCP, UNKNOWN CMRN: [id number] [facility]: [address] [place] [address] IMAGING SERVICES Ordering Prov: N/A Interpretation LUMBAR SPINE AP AND LATERAL VIEWS, 02/22/2009 HISTORY: Anterior spinal fusion and discectomy at L5-S1 level. FINDINGS: Metal plate and screws are in place anterior to the L5-S1 level.Interbody bone graft is present. Alignment at this level is normal. Hardwareis intact. Higher lumbar levels appear normal. IMPRESSION: No significant change in appearance of anterior L5-S1 fusion since 01/04/2009. . Dictated by: JOSE ROBERTO MCKINNEY 02/22/2009 10:43 Electronically signed by: JOSE ROBERTO MCKINNEY 02/22/2009 18:14 Transcribed: 02/22/2009 14:32 [facility] Erica Villanueva MD DIAGNOSTIC IMAGING ORDERABLES F inal Result documented in this encounter Visit Diagnoses Diagnosis Displacement of lumbar intervertebral disc without myelopathy documented in this encounter Care Teams Assembler Billiard Table Relationship Specialty Start Date End Date Alfonso Schwartz MD PCP - General Family Practice 12/17/22 documented as of this encounter
--- OUTSIDE RECORDS SUMMARY | 2024-09-24 11:34 | XMS_ITS | Continuity of Care Document ---
Author Name [facility] Organization [facility] Care Team Providers Care Computer Networker Name Role Phone [facility] Unavailable Unavailable Problems Combined list of problems from Department of [facility] and [facility] facilities. It does not include entries that were removed or entered in error. Problem Status Onset Date Problem Type Date of Resolution Comments Source Coronary Artery Disease Active Condition [facility] HTN Active Condition [facility] Hypercholesterolemia Active Condition [facility] HYPERTENSION NOS Active Condition [facility] Other postablative hypothyroidism Active Condition [facility] Encounters Combined list of: 1) Encounters from Department of Veterans Affairs facilities going backup to the last 18 months, not all VA inpatient encounters are included; 2) Encounters from the Department of [facility] facilities going backup to 280 months. Location Location Details Encounter Type Encounter Number Reason For Visit Attending Provider ADM Date DC Date Status Disposition Source [facility] Outpatient Encounter [id number] Edgardo BRAXTON 12/02 [facility] Outpatient Encounter [id number] SYLWIA MCCARTHY 12/03 [facility] Outpatient Encounter [id number] 12/04 [facility] Outpatient Encounter [id number] 12/04 [facility] Outpatient Encounter [id number] 12/24 [facility] Social History Combined list of available smoking, tobacco, and other social history from Department of Defense and Veterans Affairs facilities. Social History Type Response Date Comment Source Tobacco smoking status NHIS CURRENT NON-TOBACCO USER-HX OF USE 04/16/2001 stopped smoking 4mos. ago. [facility] History of tobacco use CURRENT TOBACCO USER 10/30/2000 [facility] History of tobacco use CURRENT NON-TOBACCO USER-HX OF USE 02/13/2000 [facility]
--- OUTSIDE RECORDS SUMMARY | 2024-09-24 11:34 | XMS_ITS | Clinical Summary ---
Author Organization [facility] Address [facility] [place] [address] Care Team Providers Care Hot Box Spotter Name Role Phone Unavailable Primary Care Provider Unavailabl e Social History Tobacco Use Types Packs/Day Years Used Date Smoking Tobacco: Never Assessed Sex and Gender Information Value Date Recorded Sex Assigned at Not on file Legal Sex Male 7:56 PM CDT Gender Identity Not on file Sexual Orientation Not on file Plan of Treatment Health Maintenance Due Date Last Done Comments Colorectal Cancer Screening Colonoscopy (10 Years) 1970 Annual Physical 10/15/1971 Hepatitis C 1986 DTaP, Tdap and Td Vaccines ( 1 - Tdap) 10/15/1987 Hepatitis B Vaccines (1 of 3 - 19+ 3-dose series) 10/15/1987 Zoster Vaccines (1 of 2) 2018 COVID-19 Vaccine (2023-2 5 season) 2024 Influenza Adult (#1) 2024 Meningococcal B Vaccine Aged Out No l onger eligible based on patient's age to complete this topic Meningococcal Vaccine Aged Out No kaya wale eligible based on patient's age to complete this topic Pneumococcal Vaccine: Pediat rics (0 to 5 Years) and At-Risk Patients (6 to 64 Years) Aged Out No longer eligible b ased on patient's age to complete this topic RSV Immunizations Under 20 Months Aged Out No longer eligible based on patient's age to complete this topic
--- OUTSIDE RECORDS SUMMARY | 2024-09-24 11:34 | XMS_ITS | Clinical Summary ---
Author Organization [facility] Address [address] [place] [address] Care Team Providers Care Bridge Maintenance Worker Name Role Phone Alfonso Schwartz MD Primary Care Prov ider Allergies Active Allergy Reactions Criticality Noted Date Comments Oxycodone-Acetaminophen Itching Low 02/10/2015 Medications levothyroxine (SYNTHROID) 200 mcg tablet 10/08/2021 Active metoprolol tartrate (LOPRESSOR) 50 mg immediate release tablet 11/15/2010 Acti ve simvastatin (ZOCOR) 40 mg tablet 10/08/2021 Active aspirin 81 mg enteric coated tablet Take 81 mg by mouth daily Active Active Problems No known active problems Surgical History Surgery Date Site/Laterality Comments NECK SURGERY Neck Surgery - (Added by TW Conv) BACK SURGERY Back Surgery - (Added by Conv) HAND SURGERY Hand Surgery - (Added by TW Conv) Family History Medical History Relation Name Comments Arthritis Brother Family history of arthritis - (Added by TW Conv) Arthritis Father Family history of arthritis - (Added by TW Conv) Cancer Father Family history of malignant neoplasm - (Added by TW Conv) Diabetes Father Family history of diabetes mellitus - (Added by TW Conv) Gout Father Family history of gout - (Added by TW Conv) Heart disease Father Family history of cardiac disorder - (Added by TW Conv) Hypertension Father Family history of hypertension - (Added by TW Conv) Diabetes Mother Family history of diabetes mellitus - (Added by TW Conv) Cancer Sister Family history of malignant neoplasm - (Added by TW Conv) Kidney disease Sister Family histor y of kidney disease - (Added by TW Conv) Lung disease Sister Family history of lung disease - (Added by TEMI Conv) Relation Name Status Comments Brother Father Mother Sister Social History Tobacco Use Types Packs/Day Years Used Date Smoking Tobacco: Every Day Personal Safety Answer Date Recorded Getting School Help Needed Not on file 08/25 Sex and Gender Information Value Date Recorded Sex Assigned at Not on file 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 Gender Identity Not on file Sexual Orientation Not on file Obstetrics History Last Filed Vital Signs Vital Sign Reading Time Taken Comments Blood Pressure 126/74 11/12/2021 11:23 AM CDT Pulse 68 11/12/2021 11:23 AM CDT Temperature 37.1 C (98.7 F) 11/12/2021 11:23 AM CDT Respiratory Rate 18 11/12/2021 11:23 AM CDT Oxygen Saturation 96% 11/12/2021 11:23 AM CDT Inhaled Oxygen Concentration - - Weight 113.9 kg (251 lb) 11/12/2021 11:23 AM CDT Height 182.9 cm (6') 11/12/2021 11:23 AM CDT Body Mass Index 34.04 11/12/2021 11:23 AM CDT Plan of Treatment Health Maintenance Due Date Last Done Comments Colon Cancer Screening-Colonoscopy 1970 Depression Screening 1970 Hepatitis C Screening 1970 Prostate Cancer Screening-PSA 1968 DTaP/Tdap/Td Vaccine (1 - Tdap) 10/15/1979 Hepatitis B Screening 1986 Regular Well Visit/Exam 18-64 1986 Pneumococcal vaccine <65 (1 of 2 - PCV) 10/15/1987 Zoster Vaccine (1 of 2) 2018 Influenza Vaccine (#1) 2024 Insurance [facility] CHOICE PLUS [facility] HMO/PPO Address: [facility] [address] [place] [address] Care Teams Bridge Maintenance Worker Relationship Specialty Start Date End Date Alfonso Schwartz MD [address] [place] [address] PCP - General 10/18/16
--- OUTSIDE RECORDS SUMMARY | 2024-09-24 11:34 | XMS_ITS | Encounter Summary ---
Author Organization [facility] Address [address] [place] [address] Care Team Providers Care Equity Holder Name Role Phone Alfonso Schwartz MD Primary Care Provider +1- [phone] Encounter Details Date Type Department Care Team (Latest Contact Info) Description 01/04/2009 Outpatient [facility] Erica Villanueva MD [address] [place] [address] Displacement of Lumbar Intervertebral Disc without Myelopathy Social History Tobacco Use Types Packs/Day Years Used Date Smoking Tobacco: Never Assessed Sex and Gender Information Value Date Recorded Sex Assigned at Not on file 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 Gender Identity Not on file Sexual Orientation Not on file documented as of this encounter Plan of Treatment Upcoming Encounters Date Type Department Care Team (Late st Contact Info) Description 09/30/2024 3:30 PM CDT Office Visit [facility] Oncology and Hematology - Charli [address] [place] [address] Luis Nick MD [address] [place] [address] documented as of this encounter Procedures Procedure Name Priority Date/Time Associated Diagnosis Comments XR LUMBAR SPINE 2 OR 3 VW Routine 01/04/2009 10:31 AM CDT documented in this encounter Results * XR LUMBAR SPINE 2 OR 3 VW (01/04/2009 10:31 AM CDT) Anatomical Region Laterality Modality Spine Other 01/04/2009 10:3 1 AM CDT Narrative 01/04/2009 11:04 AM CDT [address] [place], [place] [address] Admit Date: 01/04/2009 JESSICA LESLIE Sex: Latanya Admit Prov: ERICA VILLANUEVA Date: 1970 Primary Care Prov: PCP, UNKNOWN CMRN: [id number] Room: [facility]: [address] [place] [address] IMAGING SERVICES Ordering Prov: N/A Accession Number: [id number] Interpretation LUMBAR SPINE 2 VIEWS 01/04/2009 History: Lumbar disc displacement Findings: Comparison is made to prior examination dated December 06, 2008. Anterior metal fixation at L5-S1 and intervertebral disc bony graft or vertebral spacer is noted. These findings are present on previous exam and there is no definite change. No other definite change is noted. IMPRESSION: No interval change . Dictated by: ROBERTO TURNER 01/04/2009 10:48 Electronically signed by: ROBERTO TURNER 01/04/2009 11:03 Transcribed: 01/04/2009 10:51 AMK Procedure Note Roberto Turner DO - 01/04/2009 [address] [place], [place] [address] Admit Date: 01/04/2009 JESSICA LESLIE Sex: Latanya Admit Prov: ERICA VILLANUEVA Date: 1970 Primary Care Prov: PCP, UNKNOWN CMRN: [id number] [facility] [address] [place] [address] IMAGING SERVICES Ordering Prov: N/A Interpretation LUMBAR SPINE 2 VIEWS 01/04/2009 History: Lumbar disc displacement Findings: Comparison is made to prior examination dated November. Anterior metal fixation at L5-S1 and intervertebral disc bony graftor vertebral spacer is noted. These findings are present on previousexam and there is no definite change. No other definite change is noted. IMPRESSION: No interval change . Dictated by: ROBERTO TURNER 01/04/2009 10:48 Electronically signed by: ROBERTO TURNER 01/04/2009 11:03 Transcribed: 01/04/2009 10:51 [facility] us Erica Villanueva MD DIAGNOSTIC IMAGING ORDERABLES F inal Result documented in this encounter Visit Diagnoses Diagnosis Displacement of lumbar intervertebral disc without myelopathy documented in this encounter Care Teams Equity Holder Relationship Specialty Start Date End Date Alfonso Schwartz MD PCP - General Family Practice 12/17/22 documented as of this encounter
--- OUTSIDE RECORDS SUMMARY | 2024-09-24 11:34 | XMS_ITS | Referral Summary ---
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
--- OUTSIDE RECORDS SUMMARY | 2024-09-24 11:34 | XMS_ITS | Clinical Summary ---
Author Organization [facility] Address [address] [place] [address] Phone Care Team Providers Care Farmer And Grazier Name Role Phone Alfonso Schwartz MD Primary Care Provider +1- [phone] Allergies Active Allergy Reactions Criticality Noted Date Comments Oxycodone-Acetaminophen Itching Low 02/10/2015 Medications levothyroxine 200 mcg tablet 200 mcg. 10/08/2021 Acti ve METOPROLOL TARTRATE ORAL Take 500 mg by mouth daily. Active FLUoxetine (PROzac) 40 mg capsule Take 40 mg by mouth daily. Active atorvastatin (LIPITOR) 20 mg tablet Take 20 mg by mouth daily. Active hydrOXYzine HCL (ATARAX) 25 mg tablet Take 25 mg by mouth 3 times daily as needed for Anxiety. 04/13/2024 Active Active Problems No known active problems Encounters Date Type Department Care Team Description 09/07/2024 External Device Data [facility] ABSTRACTION Provider, Abstract 09/07/2024 External Device Data [facility]STRACTION Provider, Abstract 08/10/2024 External Device Data [facility]STRACTION Provider, Abstract 07/06/2024 External Device Data [facility]STRA[facility] Provider, Abstract from Last 3 Months Family History Medical History Relation Name Comments Diabetes Brother Diabetes Father Heart Disease Father Relation Name Status Comments Brother Alive Father Mother Alive Sister 1 Sister 2 Alive Son Alive Social History Tobacco Use Types Packs/Day Years Used Date Smoking Tobacco: Former Cigarettes Smokeless Tobacco: Never Tobacco Cessation:Counseling Given: Not Answered Alcohol Use Standard Drinks/Week Comments Yes 0 (1 standard drink = 0.6 oz pur e alcohol) rare Sex and Gender Information Value Date Recorded Sex Assigned at Not on file 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 Gender Identity Not on file Sexual Orientation Not on file Last Filed Vital Signs Vital Sign Reading Time Taken Comments Blood Pressure 150/94 06/01/2024 3:13 PM RISK DEVELOPER Pulse 66 06/01/2024 3:12 PM RISK DEVELOPER Temperature 36.6 C (97.8 F) 06/01/2024 3:12 PM RISK DEVELOPER Respiratory Rate 16 06/01/2024 3:12 PM RISK DEVELOPER Oxygen Saturation 94% 06/01/2024 3:12 PM RISK DEVELOPER Inhaled Oxygen Concentration - - Weight 97.6 kg (215 lb 3.2 oz) 06/01/2024 3:12 P M RISK DEVELOPER Height 182.9 cm (6') 12/17/2022 2:52 PM CDT Body Mass Index 29.19 12/17/2022 2:52 PM CDT Plan of Treatment Upcoming Encounters Date Type Department Care Team (Late st Contact Info) Description 09/30/2024 3:30 PM CDT Office Visit [facility] Oncology and Hematology [facility] [address] [facility] [address] [place] [address] Luis Nick MD [address] [place] [address] Health Maintenance Due Date Last Done Comments Pre-Diabetes and Diabetes Screening 1970 DTAP/TDAP/TD VACCINES (1 - Tdap) 10/15/1987 HEPATITIS B VACCINES (1 of 3 - 19+ 3-dose series) 09/28 ZOSTER VACCINE (1 of 2) 2018 INFLUENZA VACCINE (#1) 2024 Preventative Visit- Commercial 06/30/2024 Abdominal Aortic Aneurysm (AAA) Screening Completed 10/10/2023 COLORECTAL SCREENING Discontinued 11/12/2023 Colorectal Cancer Screening Discontinued FIT-DNA Q 3 years Discontinued FIT/FOBT Q 1 year Discontinued Flex Sig/CT Colonography Q 5 years Discontinued Procedures Procedure Name Priority Date/Time Associated Diagnosis Comments COLONOSCOPY REPORT Routine 11/12/2023 9:22 AM CDT US ABDOMEN COMPLETE Routine 10/10/2023 10:11 AM CDT from Last 3 Months or Most Recently Relevant to Health Maintenance Results * COLONOSCOPY REPORT (11/12/2023 9:22 AM CDT) Luis Nick MD GI PROCEDURE ORDERABLES Final R esult * US ABDOMEN COMPLETE (10/10/2023 10:11 AM CDT) Anatomical Region Laterality Modality Abdomen Ultrasound Luis Nick MD US ORDERABLES Final Result from Last 3 Months or Most Recently Relevant to Health Maintenance Insurance Care Teams Farmer And Grazier Relationship Specialty Start Date End Date Alfonso Schwartz MD PCP - General Family Practice 12/17/22
--- OUTSIDE RECORDS SUMMARY | 2024-09-24 11:34 | XMS_ITS | Clinical Summary ---
Author Organization [facility] Address [address] [facility] [place] [address] Care Team Providers Care Business System Consultant Name Role Phone Unavailable Primary Care Provider Unavailabl e Source Comments [facility],non-owned Affiliates and Associated Physician Practices is amultiple site organization consisting of ambulatory clinics and hospital sitesin [place], [place], [place] and [place]. This disclosure is being madepursuant to the Care Everywhere program and may not contain all information available regarding this patient. Last updated 18.[facility] [employer] Allergies Active Allergy Reactions Criticality Noted Date Comments Oxycodone-Acetaminophen Itching 02/10/2015 Social History Tobacco Use Types Packs/Day Years Used Date Smoking Tobacco: Every Day Cigarettes Cigars Alcohol Use Standard Drinks/Week Comments Yes 0 (1 standard drink = 0.6 oz pur e alcohol) socially Sex and Gender Information Value Date Recorded Sex Assigned at Not on file Gender Identity Not on file Sexual Orientation Not on file Last Filed Vital Signs Vital Sign Reading Time Taken Comments Blood Pressure 130/99 02/10/2015 11:30 AM CDT Pulse 60 02/10/2015 11:30 AM CDT Temperature 37 C (98.6 F) 02/10/2015 10:02 AM CDT Respiratory Rate 18 02/10/2015 11:30 AM CDT Oxygen Saturation 99% 02/10/2015 11:30 AM CDT Inhaled Oxygen Concentration - - Weight 108.9 kg (240 lb) 02/10/2015 10:02 AM CDT Height 182.9 cm (6' 0.01 ) 02/10/2015 10:02 AM C DT Body Mass Index 32.54 02/10/2015 10:02 AM CDT Plan of Treatment Health Maintenance Due Date Last Done Comments COLOGUARD (AGES 45-75) - COL ON CA SCREENING 1970 COLON MONITORING 1968 COLONOSCOPY - COLON CA SCREENING 1968 CT COLONOGRAPHY - COLON CA SCREENING 1970 Colorectal Cancer Screening 1968 FIT - COLON CA SCREENING 1968 FLEX SIG - COLON CA SCREENING 1968 LIPID TESTING 1968 HIV SCREENING 10/15/1983 HEPATITIS C SCREENING 10/10/1986 DTAP/TDAP/TD VACCINES (1 - Tdap) 10/15/1987 HEPATITIS B VACCINE (1 of 3 - 19+ 3-dose series) 10/15/1987 PNEUMOCOCCAL VACCINE 50+ (1 of 2 - PCV) 10/15/1987 PNEUMOCOCCAL VACCINE (1 of 2 - PCV) 10/15/1987 ZOSTER VACCINE (1 of 2) 2018 COVID-19 VACCINE (1 - 2023-2 5 season) 2024 INFLUENZA VACCINE (#1) 2024 DEPRESSION SCREENING 06/30/2024 HIB VACCINE Aged Out No longer eligi ble based on patient's age to complete this topic HPV VACCINE Aged Out No longer eligi ble based on patient's age to complete this topic MENINGOCOCCAL (Group B) VACC INE SHARED DECISION-MAKING Aged Out No longer eligibl e based on patient's age to complete this topic MENINGOCOCCAL GROUPS A/C/Y/W VACCINE Aged Out No longer eligible b ased on patient's age to complete this topic JESSICA ARMSTRONG Personal/Family [address] [place] [address] JESSICA RAMSTRONG Personal/Family [address] [place] [address] JESSICA ARMSTRONG Personal/Family [address] [place] [address] [id number] Workers Comp Employer [address] [place] [id number]
[2024-09-24 12:54] LABS: Alanine Aminotransferase 45 U/L (6-50); Albumin Level 4.8 g/dL (3.5-5.1); Alkaline Phosphatase 81 U/L (38-126); Anion Gap 10 mmol/L (4-12); Aspartate Amino Transferase 38 U/L (17-59); Blood Urea Nitrogen 10 mg/dL (9-20); Calcium 9.9 mg/dL (8.4-10.2); Carbon Dioxide 30 mmol/L (22-30); Chloride 100 mmol/L (98-107); Estimated Glomerular Filt Rate > 60; Glucose 108 mg/dL (65-110); Potassium 4.6 mmol/L (3.4-5.0); Sodium 140 mmol/L (137-145)
== END 2024-09-24 10:38 | disposition home or self-care (01) ==
LOC: ANHLAB 10:38
PROVIDERS: PCP Family Medicine Adolescent Medicine; Visit Provider Internal Medicine Hematology & Oncology
DX: C18.9 Malignant neoplasm of colon, unspecified (principal)
CPT/HCPCS: 36415; 80053; 82378; 85025

== ENCOUNTER 2025-02-16 03:43 | Day surgery (SDC) | payer OTHER, SELFPAY ==
[2025-02-07 10:47] VITALS: BMI 28.0
--- OUTSIDE RECORDS SUMMARY | 2025-02-16 03:46 | XMS_ITS | Continuity of Care Document ---
Author Name [facility] Organization [facility] Care Team Providers Care Eligibility Supervisor Name Role Phone [facility] Unavailable Unavailable Problems Combined list of problems from Department of Defense and [facility] facilities. It does not include entries that were removed or entered in error. Problem Status Onset Date Problem Type Date of Resolution Comments Source Coronary Artery Disease Active Condition [facility] HTN Active Condition [facility] Hypercholesterolemia Active Condition [facility] HYPERTENSION NOS Active Condition [facility] Other postablative hypothyroidism Active Condition [facility] Encounters Combined list of: 1) Encounters from Department of Veterans Affairs facilities going backup to the last 18 months, not all [place] inpatient encounters are included; 2) Encounters from the Department of [facility] facilities going backup to 280 months. Location Location Details Encounter Type Encounter Number Reason For Visit Attending Provider ADM Date DC Date Status Disposition Source [facility] Outpatient Encounter [id number] Edgardo BRAXTON 12/02 [facility] Outpatient Encounter [id number] SYLWIA MCCARTHY 12/03 [facility] Outpatient Encounter [id number] 12/04 [facility] Outpatient Encounter [id number] 12/04 [facility] Outpatient Encounter [id number] 12/24 [facility] Social History Combined list of available smoking, tobacco, and other social history from Department of Defense and Veterans Affairs facilities. Social History Type Response Date Comment Source Tobacco smoking status NHIS CURRENT NON-TOBACCO USER-HX OF USE 04/16/2001 stopped smoking [address] ago[address] [facility] History of tobacco use CURRENT TOBACCO USER 10/30/2000 [facility] History of tobacco use CURRENT NON-TOBACCO USER-HX OF USE 02/13/2000 [facility] This section is an empty social history section. DoD
--- OUTSIDE RECORDS SUMMARY | 2025-02-16 03:46 | XMS_ITS | Encounter Summary ---
Author Organization [facility] Address [address] [place] [address] Care Team Providers Care Shot Fireman Name Role Phone Alfonso Schwartz MD Primary Care Provider +1- [phone] Encounter Details Date Type Department Care Team (Latest Contact Info) Description 01/04/2009 Outpatient [facility] Erica Villanueva MD [address] [place] [address] Displacement of Lumbar Intervertebral Disc without Myelopathy Social History Tobacco Use Types Packs/Day Years Used Date Smoking Tobacco: Never Assessed Sex and Gender Information Value Date Recorded Sex Assigned at Not on file 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 Gender Identity Not on file Sexual Orientation Not on file documented as of this encounter Plan of Treatment Upcoming Encounters Date Type Department Care Team (Late st Contact Info) Description 04/04/2025 3:30 PM CDT Office Visit [facility] Oncology and Hematology - [place] [address] [place] [address] Luis Nick MD [address] [facility] [place] [address] documented as of this encounter Procedures Procedure Name Priority Date/Time Associated Diagnosis Comments XR LUMBAR SPINE 2 OR 3 VW Routine 01/04/2009 10:31 AM CDT documented in this encounter Results * XR LUMBAR SPINE 2 OR 3 VW (01/04/2009 10:31 AM CDT) Anatomical Region Laterality Modality Spine Other 01/04/2009 10:3 1 AM CDT Narrative 01/04/2009 11:04 AM CDT [address] [place], [place] [address] Admit Date: 01/04/2009 JESSICA LESLIE Sex: Latanya Admit Prov: ERICA VILLANUEVA Date: 1970 Primary Care Prov: PCP, UNKNOWN CMRN: [id number] Room: [facility]: [address] [place] [address] IMAGING SERVICES Ordering Prov: N/A Accession Number: [id number] Interpretation LUMBAR SPINE 2 VIEWS 01/04/2009 History: [...] Procedure Note Roberto Turner DO - 01/04/2009 [place] [address] [place], [place] [address] Admit Date: 01/04/2009 JESSICA LESLIE Sex: Latanya Admit Prov: ERICA VILLANUEVA Date: 1970 Primary Care Prov: PCP, UNKNOWN CMRN: [id number] [facility]: [address] [place] [address] IMAGING SERVICES Ordering Prov: N/A Interpretation LUMBAR [...] myelopathy documented in this encounter Care Teams Shot Fireman Relationship Specialty Start Date End Date Alfonso Schwartz MD PCP - General Family Practice 12/17/22 documented as of this encounter
--- OUTSIDE RECORDS SUMMARY | 2025-02-16 03:46 | XMS_ITS | Encounter Summary ---
Author Organization [facility] Address [address] [place] [address] Care Team Providers Care Before School Babysitter Name Role Phone Alfonso Schwartz MD Primary Care Provider +1- [phone] Encounter Details Date Type Department Care Team (Latest Contact Info) Description 02/22/2009 Outpatient [facility] Erica Villanueva MD [address] [place] [address] Displacement of Lumbar Intervertebral Disc without Myelopathy Social History Tobacco Use Types Packs/Day Years Used Date Smoking Tobacco: Never Assessed Sex and Gender Information Value Date Recorded Sex Assigned at Not on file 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 Gender Identity Not on file Sexual Orientation Not on file documented as of this encounter Plan of Treatment Upcoming Encounters Date Type Department Care Team (Late st Contact Info) Description 04/04/2025 3:30 PM CDT Office Visit [facility] Oncology and Hematology - [place] [address] [place] [address] Luis Nick MD [address] [facility] [address] [place] [address] documented as of this encounter Procedures Procedure Name Priority Date/Time Associated Diagnosis Comments XR LUMBAR SPINE 2 OR 3 VW Routine 02/22/2009 10:30 AM CDT documented in this encounter Results * XR LUMBAR SPINE 2 OR 3 VW (02/22/2009 10:30 AM CDT) Anatomical Region Laterality Modality Spine Other 02/22/2009 10:3 0 AM CDT Narrative 02/22/2009 6:16 PM CDT [address] [place] [address] Admit Date: 02/22/2009 JESSICA LESLIE Sex: M Admit Prov: ERICA VILLANUEVA Date: 1970 Primary Care Prov: PCP, UNKNOWN CMRN: [id number] Room: [facility]: [address] [place] [address] IMAGING SERVICES Ordering Prov: N/A Accession Number: [id number] Interpretation LUMBAR SPINE AP AND LATERAL VIEWS, [...] ROBERTO MCKINNEY 02/22/2009 18:14 Transcribed: 02/22/2009 14:32 [facility] Procedure Note Jose Roberto Mckinney MD - 02/22/2009 [place] [address] [place], [place] [address] Admit Date: 02/22/2009 JESSICA LESLIE Sex: M Admit Prov: ERICA VILLANUEVA Date: 1970 Primary Care Prov: PCP, UNKNOWN CMRN: [id number] [facility] [address] [place] [address] IMAGING SERVICES Ordering Prov: N/A Interpretation LUMBAR [...] myelopathy documented in this encounter Care Teams Before School Babysitter Relationship Specialty Start Date End Date Alfonso Schwartz MD PCP - General Family Practice 12/17/22 documented as of this encounter
--- OUTSIDE RECORDS SUMMARY | 2025-02-16 03:47 | XMS_ITS | Clinical Summary ---
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 Gender Identity Not on file Sexual Orientation Not on file Last Filed Vital Signs Vital Sign Reading Time Taken Comments Blood Pressure 133/85 09/30/2024 3:12 PM CDT Pulse 64 09/30/2024 3:12 PM CDT Temperature 36.3 C (97.3 F) 09/30/2024 3:12 PM CDT Respiratory Rate 16 09/30/2024 3:12 PM CDT Oxygen Saturation 98% 09/30/2024 3:12 PM CDT Inhaled Oxygen Concentration - - Weight 96.5 kg (212 lb 12.8 oz) 09/30/2024 3:12 PM CDT Height 182.9 cm (6') 12/17/2022 2:52 PM CDT Body Mass Index 28.86 12/17/2022 2:52 PM CDT Plan of Treatment Upcoming Encounters Date Type Department Care Team (Late st Contact Info) Description 04/04/2025 3:30 PM CDT Office Visit [facility] Oncology and Hematology - [place] [address] [address] [place] [address] Luis Nick MD [address] [facility] [address] [place] [address] Health Maintenance Due Date Last Done Comments Pre-Diabetes and Diabetes Screening 1970 DTAP/TDAP/TD VACCINES (1 - Tdap) 10/15/1987 HEPATITIS B VACCINES (1 of 3 - 19+ 3-dose series) 09/28 ZOSTER VACCINE (1 of 2) 2018 INFLUENZA VACCINE (#1) 2025 Abdominal Aortic Aneurysm (AAA) Screening Completed 10/10/2023 [...] * COLONOSCOPY REPORT (11/12/2023 9:22 AM CDT) us Luis Nick MD GI PROCEDURE ORDERABLES Final R esult * US ABDOMEN COMPLETE (10/10/2023 10:11 AM CDT) Anatomical Region Laterality Modality Abdomen Ultrasound us Luis Nick MD ORDERABLES Final Result from Last 3 Months or Most Recently Relevant to Health Maintenance Insurance [facility] Science Exchange [id number] [facility] Science Exchange [id number] Care Teams Fence Making Machine Operator Relationship Specialty Start Date End Date Alfonso Schwartz MD PCP - General Family Practice 12/17/22
--- OUTSIDE RECORDS SUMMARY | 2025-02-16 03:47 | XMS_ITS | Encounter Summary ---
Author Organization [facility] Address [address] [place] [address] Care Team Providers Care Customs Officer Name Role Phone Alfonso Schwartz MD Primary Care Provider +1- [phone] Encounter Details Date Type Department Care Team (Latest Contact Info) Description 12/06/2008 Outpatient [facility] Erica Villanueva MD [address] [place] [address] Displacement of Lumbar Intervertebral Disc without Myelopathy Social History Tobacco Use Types Packs/Day Years Used Date Smoking Tobacco: Never Assessed Sex and Gender Information Value Date Recorded Sex Assigned at Not on file 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 Gender Identity Not on file Sexual Orientation Not on file documented as of this encounter Plan of Treatment Upcoming Encounters Date Type Department Care Team (Late st Contact Info) Description 04/04/2025 3:30 PM CDT Office Visit [facility] Oncology and Hematology - [place] [address] [place] [address] Luis Nick MD [address] [facility] [address] [place] [address] documented as of this encounter Procedures Procedure Name Priority Date/Time Associated Diagnosis Comments XR LUMBAR SPINE 2 OR 3 VW Routine 12/06/2008 10:08 AM CDT documented in this encounter Results * XR LUMBAR SPINE 2 OR 3 VW (12/06/2008 10:08 AM CDT) Anatomical Region Laterality Modality Spine Other 12/06/2008 10:0 8 AM CDT Narrative 12/06/2008 3:08 PM CDT [address] [place], [place] [address] Admit Date: 12/06/2008 JESSICA LESLIE Sex: Latanya Admit Prov: ERICA VILLANUEAV Date: 1970 Primary Care Prov: PCP, UNKNOWN CMRN: [id number] Room: [facility]: [address] [place] [address] IMAGING SERVICES Ordering Prov: N/A Accession Number: [id number] Interpretation TWO VIEWS OF THE LUMBAR SPINE. [...] Procedure Note Vasiliy Nunez MD - 12/06/2008 [address] [place], [place] [address] Admit Date: 12/06/2008 JESSICA LESLIE Sex: Latanya Admit Prov: ERICA VILLANUEVA Date: 1970 Primary Care Prov: PCP, UNKNOWN CMRN: [id number] Room: [facility]: [id number] IMAGING SERVICES Ordering Prov: N/A Interpretation TWO [...] myelopathy documented in this encounter Care Teams Customs Officer Relationship Specialty Start Date End Date Alfonso Schwartz MD PCP - General Family Practice 12/17/22 documented as of this encounter
--- OUTSIDE RECORDS SUMMARY | 2025-02-16 03:47 | XMS_ITS | Encounter Summary ---
Author Organization [facility] Address [address] [place] [address] Care Team Providers Care Rn Or Lpn Name Role Phone Alfonso Schwartz MD Primary Care Provider +1- [phone] Encounter Details Date Type Department Care Team (Late st Contact Info) Description 10/06/2008 Outpatient Historical [facility] Erica Finney MD 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 HEMOGLOBIN 12.0(L) 13.6 - 16.5 g/dL [facility] Blood specimen (specimen) 10/18/2008 5:32 AM CDT 10/18/2008 6:02 AM CDT us Erica Finney MD HEMATOLOGY ORDERABLES Final Res ult INTERFACE SYSTEM Refer to clinic/hospital department [facility] CLIA# [id number] [address] [place] [address] * (ABNORMAL) HEMOGLOBIN AND HEMATOCRIT (10/17/2008 7:00 PM CDT) HEMOGLOBIN 13.4(L) 13.6 - 16.5 g/dL [facility] HEMATOCRIT 40.0 40.0 - 48.0 % [facility] Blood specimen (specimen) 10/17/2008 7:00 PM CDT 10/17/2008 7:04 PM CDT us Erica Finney MD HEMATOLOGY ORDERABLES Final Res ult Performing Organization Address [facility] de Phone Number INTERFACE SYSTEM Refer to clinic/hospital department [facility] CLIA# [id number] [address] [place] [address] * HEMOGLOBIN AND HEMATOCRIT (10/17/2008 1:00 PM CDT) HEMOGLOBIN 13.8 13.6 - 16.5 g/dL [facility] HEMATOCRIT 40.5 40.0 - 48.0 % [facility] Blood specimen (specimen) 10/17/2008 1:00 PM CDT 10/17/2008 1:03 PM CDT us Erica Finney MD HEMATOLOGY ORDERABLES Final Res ult Performing Organization Address [facility] Phone Number INTERFACE SYSTEM Refer to clinic/hospital department [facility] CLIA# [id number] [address] [place] [address] * XR LUMBAR SPINE 1 VW (10/17/2008 11:36 AM CDT) Anatomical Region Laterality Modality Spine Other 10/17/2008 11:3 6 AM CDT Narrative 10/17/2008 5:29 PM CDT [facility] [address] [place], [place] [address] Admit Date: 10/17/2008 RHONDAJESSICA MARCUM Sex: M Admit Prov: ERICA FINNEY Date: 1970 Primary Care Prov: PCP, UNKNOWN CMRN: [id number] Room: [address] [place] [address] SSN: [id number] IMAGING SERVICES Ordering Prov: N/A Accession Number: [id number] Interpretation LUMBAR SPINE SINGLE VIEW 10/17/2008 History: [...] Note Jose Roberto Cat MD - 10/17/2008 [place] [address] [place], [place] [address] Admit Date: 10/17/2008 RHONDAJESSICA MARCUM Sex: M Admit Prov: ERICA FINNEY Date: 1970 Primary Care Prov: PCP, UNKNOWN CMRN: [id number] Room: [address] [place] [address] SSN: [id number] IMAGING SERVICES Ordering Prov: N/A Interpretation LUMBAR SPINE SINGLE VIEW 10/17/2008 History: Spine surgery Findings: Since preceding radiograph at 1100 hours, patient hasundergone anterior spinal fusion and discectomy at L5-S1 level. Interbody bonegraft is in place. Metal plate and screws are in place at L5-S1 level.Alignment appears normal. IMPRESSION: Status post anterior interbody fusion and discectomy at L5-Y7vgfiy. . Dictated by: JOSE ROBERTO CAT 10/17/2008 13:12 Electronically signed by: JOSE ROBERTO CAT 10/17/2008 17:28 Transcribed: 10/17/2008 16:24 AMK us Erica Finney MD DIAGNOSTIC IMAGING ORDERABLES F inal Result * XR ABDOMEN 1 VW (10/17/2008 11:30 AM CDT) Anatomical Region Laterality Modality Abdomen Other 10/17/2008 11:3 0 AM CDT Narrative 10/17/2008 11:41 AM CDT [place] [address] [address] [place], [place] [address] Admit Date: 10/17/2008 MARIAMA JESSICA Sex: M Admit Prov: ERICA FINNEY Date: 1970 Primary Care Prov: PCP, UNKNOWN CMRN: [id number] Room: [place] [address] SSN: [id number] IMAGING SERVICES Ordering Prov: N/A Accession Number: [id number] Interpretation Abdomen portable AP, 10/17/2008 at 1130 hours Indication: Rule out retained surgical instrument Findings: L5-S1 fusion plate and screw is seen. No other radiopaque density is seen. Impression: No retained metallic surgical instrument. . Dictated by: QUE GREEN 10/17/2008 11:39 Electronically signed by: QUE GREEN 10/17/2008 11:40 Procedure Note Que Green MD - 10/17/[address] [address] Admit Date: 10/17/2008 JESSICA LESLIE Sex: M Admit Prov: ERICA FINNEY Date: 1970 Primary Care Prov: PCP, UNKNOWN CMRN: [id number] Room: [place] [address] SSN: [id number] IMAGING SERVICES Ordering Prov: N/A Interpretation Abdomen [...] AM CDT Narrative 10/17/2008 11:02 AM CDT [place] [address] [place], [place] [address] Admit Date: 10/17/2008 JESSICA LESLIE Sex: M Admit Prov: ERICA FINNEY Date: 1970 Primary Care Prov: PCP, UNKNOWN CMRN: [id number] Room: [place] [address] SSN: [id number] IMAGING SERVICES Ordering Prov: N/A Accession Number: [id number] Interpretation Lumbar spine one view 10/17/2008. History: Surgery Findings: A single lateral view of lumbar spine was obtained. A probe is noted with tip projecting at L5-S1. . Dictated by: DANYA ORELLANA 10/17/2008 11:00 Electronically signed by: DANYA ORELLANA 10/17/2008 11:01 Procedure Note Danya Walsh MD - 10/17/[address] [address] Admit Date: 10/17/2008 MARIAMA JESSICA Sex: M Admit Prov: ERICA FINNEY Date: 1970 Primary Care Prov: PCP, UNKNOWN CMRN: [id number] Room: [place] [address] SSN: [id number] IMAGING SERVICES Ordering Prov: N/A Interpretation Lumbar [...] AM CDT Narrative 10/18/2008 7:47 AM CDT [address] [address] Admit Date: 10/17/2008 JESSICA LESLIE Sex: M Admit Prov: ERICA FINNEY Date: 1970 Primary Care Prov: PCP, UNKNOWN CMRN: [id number] Room: [address] [place] [address] SSN: [id number] IMAGING SERVICES Ordering Prov: ERICA FINNEY Accession Number: [id number] Interpretation Fluoroscopic guidance was used by the surgeon to assist with performance of this intra-operative procedure. Please refer to surgeon s operative report for specific details. Dictated by: RADIOLOGY, DEPARTMENT O Electronically signed by: RADIOLOGY, DEPARTMENT 10/18/2008 07:47 Transcribed: 10/17/2008 16:31 AMK Procedure Note Radiology, Radiologist - 10/18/[address] [address] Admit Date: 10/17/2008 JESSICA LESLIE Sex: M Admit Prov: ERICA FINNEY Date: 1970 Primary Care Prov: PCP, UNKNOWN CMRN: [id number] Room: [address] [place] [address] SSN: [id number] IMAGING SERVICES Ordering Prov: ERICA FINNEY Skip [...] CDT) HEMOGLOBIN 16.1 13.6 - 16.5 g/dL [facility] HEMATOCRIT 46.8 40.0 - 48.0 % [facility] Blood specimen (specimen) 10/13/2008 4:05 PM CDT 10/13/2008 4:42 PM CDT us Erica Finney MD HEMATOLOGY ORDERABLES Final Res ult Performing Organization Address [facility] de Phone Number INTERFACE SYSTEM Refer to clinic/hospital department [facility] CLIA# [id number] [address] [place] [address] * TYPE AND CROSSMATCH (10/13/2008 3:57 PM CDT) HISTORY CHECK No Historical ABO/Rh [facility] SPECIMEN LIFE [address] [facility] ABO/RH TYPE O Negative [facility] ANTIBODY SCREEN Negative [facility] Blood specimen (specimen) 10/13/2008 3:57 PM CDT Erica Finney MD BLOOD BANK ORDERABLES Edited Performing Organization Address [facility] Phone Number INTERFACE SYSTEM Refer to clinic/hospital department [facility] CLIA# [id number] [address] [place] [address] documented in this encounter Visit Diagnoses Diagnosis Displacement of intervertebral disc, site unspecified, without myelopathy documented in this encounter Care Teams Rn Or Lpn Relationship Specialty Start Date End Date Alfonso Schwartz MD PCP - General Family Practice 12/17/22 documented as of this encounter
--- OUTSIDE RECORDS SUMMARY | 2025-02-16 03:47 | XMS_ITS | Clinical Summary ---
Author Organization [facility] Address [facility] [place] [address] Care Team Providers Care Head Scorer Name Role Phone Unavailable Primary Care Provider [...] of 3 - 19+ 3-dose series) 10/15/1987 Pneumococcal Vaccine: 50+ Ye ars (1 of 1 - PCV) 2018 Zoster Vaccines (1 of 2) 2018 COVID-19 Vaccine (2023-2 5 season) 2024 Meningococcal B Vaccine Aged Out No l onger eligible based on patient's age to complete this topic Meningococcal Vaccine Aged Out No kaya wale eligible based on patient's age to complete this topic RSV Immunizations Under 20 Months Aged Out No longer eligible based on patient's age to complete this topic
--- OUTSIDE RECORDS SUMMARY | 2025-02-16 03:47 | XMS_ITS | Clinical Summary ---
Author Organization [facility] Address [address] [place] [address] Care Team Providers Care Resource Coordinator Name Role Phone Unavailable Primary Care Provider Unavailabl e Source Comments [facility],non-owned Affiliates and Associated Physician Practices is amultiple site organization consisting of ambulatory clinics and hospital sitesin [place], [place], [place] and [place]. This disclosure is being madepursuant to the Care Everywhere program and may not contain all information available regarding this patient. 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 Gender Identity Not on file Sexual Orientation [...] 10:02 AM CDT Height 182.9 cm (6' 0.01) 02/10/2015 10:02 AM C DT Body Mass [...] 50+ (1 of 2 - PCV) 10/15/1987 ZOSTER VACCINE (1 of 2) 2018 COVID-19 VACCINE (1 - 2023-2 5 season) 2024 DEPRESSION SCREENING 06/30/2024 INFLUENZA VACCINE (#1) 2025 HIB VACCINE Aged Out No longer eligi [...] on patient's age to complete this topic Insurance [facility] * Guarantor: JESSICA LESLIE Account Type Relation to Patient Date of Phone Billing Address Personal/[place] [address] [facility] CARE SELF PAY NO INSURANCE Member Subscriber Plan / Payer (Ef fective for All Dates) Name:Jessica Leslie Member ID:Not on file Relation to Subscriber:Not on file Name:JESSICA LESLIE Subscriber ID:Not on file (Home) Address: [address] [place] [address] Payer ID:Not on file Group ID:Not on file Type:Self Pay Address: [place], [place] * Guarantor: JESSICA LESLIE Account Type Relation to Patient Date of Phone Billing Address Personal/Family [address] [place] [address] [employer] SELF PAY NO INSURANCE Member Subscriber Plan / Payer (Ef fective for All Dates) Name:Jessica Leslie Member ID:Not on file Relation to Subscriber:Not on file Name:JESSICA LESLIE Subscriber ID:Not on file (Home) Address: [address] [place], [facility] Payer ID:Not on file Group ID:Not on file Type:Self Pay Address: [place], [place] * Guarantor: JESSICA LESLIE Account Type Relation to Patient Date of Phone Billing Address Personal/Family [address] [place] [address] [employer] SELF PAY NO INSURANCE Member Subscriber Plan / Payer (Ef fective for All Dates) Name:Jessica Leslie Member ID:Not on file Relation to Subscriber:Not on file Name:JESSICA LESLIE Subscriber ID:Not on file (Home) Address: [address] [place] [address] Payer ID:Not on file Group ID:Not on file Type:Self Pay Address: [place], [place] NICOLE Eigenta
--- OUTSIDE RECORDS SUMMARY | 2025-02-16 03:47 | XMS_ITS | Encounter Summary ---
Author Organization [facility] Address [address] [place] [address] Care Team Providers Care Television And Radio Repairer Name Role Phone Alfonso Schwartz MD Primary Care Provider +1- [phone] Encounter Details Date Type Department Care Team (Latest Contact Info) Description 11/08/2008 Outpatient [facility] Erica Villanueva MD [address] [place] [address] Displacement of Lumbar Intervertebral Disc without Myelopathy Social History Tobacco Use Types Packs/Day Years Used Date Smoking Tobacco: Never Assessed Sex and Gender Information Value Date Recorded Sex Assigned at Not on file 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 Gender Identity Not on file Sexual Orientation Not on file documented as of this encounter Plan of Treatment Upcoming Encounters Date Type Department Care Team (Late st Contact Info) Description 04/04/2025 3:30 PM CDT Office Visit [facility] Oncology and Hematology - Charli [address] [place] [address] Luis Nick MD [address] [facility] [address] [place] [address] documented as of this encounter Procedures Procedure Name Priority Date/Time Associated Diagnosis Comments XR LUMBAR SPINE 2 OR 3 VW Timed Study 11/08/2008 11:01 AM CDT documented in this encounter Results * XR LUMBAR SPINE 2 OR 3 VW (11/08/2008 11:01 AM CDT) Anatomical Region Laterality Modality Spine Other 11/08/2008 11:0 1 AM CDT Narrative 11/08/2008 1:36 PM CDT [address] [place], [place] [address] Admit Date: 11/08/2008 JESSICA LESLIE Sex: M Admit Prov: ERICA VILLANUEVA Date: 1970 Primary Care Prov: PCP, UNKNOWN CMRN: [id number] Room: [facility]: [address] [place] [address] IMAGING SERVICES Ordering Prov: N/A Accession Number: [id number] Interpretation CLINICAL INDICATION: 38-year-old man, postop. REPORT: [...] DKT Procedure Note Brenden Thomas - 11/08/2008 [address] [place], [place] [address] Admit Date: 11/08/2008 JESSICA LESLIE Sex: M Admit Prov: ERICA VILLANUEVA Date: 1970 Primary Care Prov: PCP, UNKNOWN CMRN: [id number] Room: [facility]: [address] [place] [address] IMAGING SERVICES Ordering Prov: N/A Interpretation CLINICAL [...] myelopathy documented in this encounter Care Teams Television And Radio Repairer Relationship Specialty Start Date End Date Alfonso Schwartz MD PCP - General Family Practice 12/17/22 documented as of this encounter
--- OUTSIDE RECORDS SUMMARY | 2025-02-16 03:47 | XMS_ITS | Clinical Summary ---
Author Organization [facility] Address [address] [place] [address] Care Team Providers Care Process Safety Engineer Name Role Phone Alfonso Schwartz MD Primary [...] BACK SURGERY Back Surgery - (Added by TW Conv) HAND SURGERY Hand Surgery - (Added [...] history of lung disease - (Added by TW Conv) Relation Name Status Comments Brother Father Mother Sister Social History Tobacco Use Types Packs/Day Years Used Date Smoking Tobacco: Every Day Personal Safety Answer Date Recorded Getting School Help Needed Not on file 08/25 Sex and Gender Information Value Date Recorded Sex Assigned at Not on file 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
--- OUTSIDE RECORDS SUMMARY | 2025-02-16 03:47 | XMS_ITS | Encounter Summary ---
Author Organization [facility] Address 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 Oncology and Hematology - [place] [address] [place] [address] [facility] [address] [place] [address] Luis Nick MD [address] [facility] [address] [place] [address] documented as of this encounter Procedures Procedure Name Priority Date/Time Associated Diagnosis Comments URINALYSIS WITH REFLEX CULTURE Routine 11/08/2008 2:11 PM CDT URINALYSIS W/REFLEX MICROSCOPIC Routine 11/08/2008 2:11 PM CDT documented in this encounter Results * URINALYSIS (11/08/2008 2:11 PM CDT) PH UA 5.5 5.0 - 8.0 [facility] KETONES UA Negative Negative [facility] CLARITY UA Clear Clear [facility] PROTEIN UA Negative Negative [facility] BILIRUBIN UA Negative Negative [facility] LEUKOCYTE ESTERASE UA Negative Negative [facility] SPECIFIC GRAVITY UA 1.011 1.001 - 1.035 [facility] BLOOD UA Negative Negative [facility] GLUCOSE UA Negative Negative [facility] COLOR UA Yellow [facility] NITRITE UA Negative Negative [facility] UROBILINOGEN UA <1 <=1 mg/dL [facility] 11/08/2008 2:11 PM CDT 11/08/2008 2:21 PM CDT Go Avalos MD URINE ORDERABLES Final Result Performing Organization Address [facility] Phone Number INTERFACE SYSTEM Refer to clinic/hospital department [facility] CLIA# [id number] [address] [place] [address] * URINALYSIS WITH REFLEX CULTURE (11/08/2008 2:11 PM CDT) Pathologist [facility] URINE CULTURE ORDER Not indicated [facility] Comment: Criteria for a reflex culture [...] URINE ORDERABLES Final Result Performing Organization Address [facility] de Phone Number INTERFACE SYSTEM Refer to clinic/hospital department [facility] CLIA# [id number] [address] [place] [address] documented in this encounter Visit Diagnoses Diagnosis Urinary frequency documented in this encounter Care Teams Block Trader Relationship Specialty Start Date End Date Alfonso Schwartz MD PCP - General Family Practice 12/17/22 documented as of this encounter
[2025-02-16 12:58] VITALS: BP 127/83; PULSE 66; RESP 20; TEMP 36.6; O2SAT 100; BMI 29.5
--- NOTE | 2025-02-16 13:28 | P.PNAN_ITS ---
Anes - Initial Pre Proc Eval Procedure: Operation Date: 02/16/25 14:00 Proposed Procedures p Esophagogastroduodenoscopy - Alfredo Hernández MD Date/Time: 02/16/25 13:28 Surgeon: Alfredo Hernández MD Pre Op Diagnosis: Vomiting, unspecified Patient Data Age: 54 Gender: M Height: 1.83 m Weight: 98.9 kg Last Vital Signs Temp 36.6 C 02/16/25 12:58 Pulse 66 02/16/25 12:58 Resp 20 02/16/25 12:58 BP 127/83 02/16/25 12:58 Pulse Ox 100 02/16/25 12:58 O2 Del Method Room Air 02/16/25 12:58 Allergies Allergy/AdvReac Type Severity Reaction Status Date / Time naproxen Allergy Mild Hives Verified 02/07/25 10:35 celecoxib Allergy Unknown Hives Verified 02/07/25 10:35 oxycodone Allergy Unknown RASH Verified 02/07/25 10:35 Home Medications ?Medication ?Instructions ?Recorded ?Confirmed ?Type atorvastatin 40 mg tablet 40 mg PO DAILY #90 tabs 03/3002/16/25 Rx fluoxetine 40 mg capsule 40 mg PO DAILY #90 caps 03/3002/16/25 Rx hydroxyzine HCl 25 mg tablet 25 mg PO TID PRN anxiety #30 tabs 08/18/24 02/16/25 Rx levothyroxine 175 mcg tablet See Rx Instructions .Rout e 11/08/24 02/16/25 Rx .COMPLEX #90 tabs sumatriptan succinate 50 mg tablet See Rx Instructions PO .COMPLEX 12/06/24 02/07/25 Rx #14 tabs pantoprazole 40 mg tablet,delayed See Rx Instructions .Route 01/11/25 02/16/25 Rx release .COMPLEX #90 tabs Patient hx anesthesia problems: none Family hx anesthesia problems: none Results Review: All pre-operative results and documents have been reviewed as part of the pre- operative evaluation. [facility] Past Medical History Medical History Hx of myocardial infarction 1999 Hx of thyroid cancer treated with radiation Colonic mass Rectal bleeding Type 2 diabetes mellitus without complications Mixed hyperlipidemia Essential (primary) hypertension Hypothyroidism, unspecified Surgical History Surgical History History of partial colectomy (10/2022) Laparoscopic sigmoid colectomy with colorectal anastomosis, da Samira assisted on 11/13/22 History of surgery on arm right bicep repair History of fusion of cervical spine Previous back surgery Family History Family History Father Acute myocardial infarction Cerebrovascular accident Depression Diabetes mellitus Heart disease Hypertension Sibling Acute myocardial infarction Cerebrovascular accident Depression Heart disease Hypertension Sibling Depression Hypertension Mother Diabetes mellitus Hypertension Social History Social History Social History: quit smoking in 2022 after his colon surgery Smoking status: Former smoker Tobacco type: cigarettes Second hand tobacco smoke exposure: Yes Additional smoking assessment comments: 5 cigars a day Alcohol intake: current Drinks per week: 2 Alcohol use details: 1 drink monthly Substance use: never Substance use type: does not use Lack of Transportation: No Lack of Food: Never True Current Housing: I Have Housing Concerned About Future Housing: No Difficulty Paying Gas/Electric Bills: No Difficulty Paying for Meds: No Currently Unemployed: No Education: Don't Know Difficulty w/ Childcare or Family Care: No Living arrangements: with family Occupation/Education: occupation Gender identity (if verbalized by the patient): Male Sexual Orientation (if Verbalized by the Patient): Straight or Heterosexual Spiritual care concerns: No Agree to blood products: Yes Anes - Eval Final PreProcedure Day of Procedure 02/16/25 13:28 Patient weight: overweight Heart: regular rate and rhythm Lungs: clear to auscultation Airway: Mallampati scale class II Neurological: alert and oriented Last oral intake: >/= 8 hours ASA classification: III Emergent: no Anesthetic plan: proceed Anesthesia type and monitoring: general GIVS and standard monitoring Results Review: All pre-operative results and documents have been reviewed as part of the pre- operative evaluation. Informed Consent: The patient's anesthetic plan and its attendant risks and benefits were discussed with the patient/family/POA. Questions were solicited and answers provided to the satisfaction of the patient/family/POA.
[2025-02-16] MEDS: SIMETHICONE ORAL SUSPENSION 20 MG/0.3 ML 30 ML BOTTLE 1.8 ML PO (13:30)
--- NOTE | 2025-02-16 14:19 | PM.IMHP ---
H&P: HPI History of Present Illness Date/Time: 02/16/25 14:19 Chief Complaint: Nausea and vomiting Narrative: the patient has been complaining of postprandial nausea followed by vomiting, between 20 and 30 minutes after meals. This has been occurring for the past 2 years. He never had an EGD and he is referred for it now. Review of Systems Review of Systems: All systems reviewed & are unremarkable except as noted in HPI and below PMFSH Past Medical History Medical History Hx of myocardial infarction 1999 Hx of thyroid cancer treated with radiation Colonic mass Rectal bleeding Type 2 diabetes mellitus without complications Mixed hyperlipidemia Essential (primary) hypertension Hypothyroidism, unspecified Surgical History Surgical History History of partial colectomy (10/2022) Laparoscopic sigmoid colectomy with colorectal anastomosis, da Samira assisted on 11/13/22 History of surgery on arm right bicep repair History of fusion of cervical spine Previous back surgery Family History Family History Father Acute myocardial infarction Cerebrovascular accident Depression Diabetes mellitus Heart disease Hypertension Sibling Acute myocardial infarction Cerebrovascular accident Depression Heart disease Hypertension Sibling Depression Hypertension Mother Diabetes mellitus Hypertension Social History Social History Social History: quit smoking in 2022 after his colon surgery Smoking status: Former smoker Tobacco type: cigarettes Second hand tobacco smoke exposure: Yes Additional smoking assessment comments: 5 cigars a day Alcohol intake: current Drinks per week: 2 Alcohol use details: 1 drink monthly Substance use: never Substance use type: does not use Lack of Transportation: No Lack of Food: Never True Current Housing: I Have Housing Concerned About Future Housing: No Difficulty Paying Gas/Electric Bills: No Difficulty Paying for Meds: No Currently Unemployed: No Education: Don't Know Difficulty w/ Childcare or Family Care: No Living arrangements: with family Occupation/Education: occupation Gender identity (if verbalized by the patient): Male Sexual Orientation (if Verbalized by the Patient): Straight or Heterosexual Spiritual care concerns: No Agree to blood products: Yes Meds Home Medications and Allergies Home Medications ?Medication ?Instructions ?Recorded ?Confirmed ?Type atorvastatin 40 mg tablet 40 mg PO DAILY #90 tabs 04/13/24 02/16/25 Rx fluoxetine 40 mg capsule 40 mg PO DAILY #90 caps 04/13/24 02/16/25 Rx hydroxyzine HCl 25 mg tablet 25 mg PO TID PRN anxiety #30 tabs 08/18/24 02/16/25 Rx levothyroxine 175 mcg tablet See Rx Instructions .Route 11/08/24 02/16/25 Rx .COMPLEX #90 tabs sumatriptan succinate 50 mg tablet See Rx Instructions PO .COMPLEX 12/06/24 02/07/25 Rx #14 tabs pantoprazole 40 mg tablet,delayed See Rx Instructions .Route 01/11/25 02/16/25 Rx release .COMPLEX #90 tabs Allergies Allergy/AdvReac Type Severity Reaction Status Date / Time naproxen Allergy Mild Hives Verified 02/07/25 10:35 celecoxib Allergy Unknown Hives Verified 02/07/25 10:35 oxycodone Allergy Unknown RASH Verified 02/07/25 10:35 Vital Signs Vital Signs - 24 hr 02/16/25 12:58 Temperature 97.9 F Pulse Rate 66 Respiratory Rate 20 Blood Pressure 127/83 Pulse Oximetry 100 Oxygen Delivery Room Air Exam Const: General: cooperative and healthy appearing Resp: Effort & Inspection: normal respiratory effort and able to speak in complete sentences Auscultation: clear to auscultation bilaterally Cardio: Rate: regular rate Rhythm: regular rhythm GI: Inspection: normal to inspection GI Palp: No No hepatosplenomegaly present Auscultation: normal bowel sounds Rectal Exam: deferred Skin: General skin exam: normal color Psych: Appearance: grossly normal Mental Status: mental status grossly normal Assessment and Plan Assessment and plan (1) Postprandial vomiting: Code(s): R11.10 - Vomiting, unspecified Status: Acute Assessment and Plan: The patient is deemed a good candidate for the procedure. Consent signed. Will proceed.
--- NOTE | 2025-02-16 14:37 | S_PTH ---
PATIENT: Hola Armstrong LOC: ROSS #:[id number] AGE/SX: 54/M ROOM: RE02/16/[address]: Alfredo Hernández MD : 1970 BED: DIS: 02/16/2025 SPEC #: [id number] RECD: 02/17/25 09:34 STATUS: MARIBEL REQ #: [id number] JOSE M: 02/16/25 14:[address]: Alfredo Hernández DEPT: [facility] Surgical RECD BY: Kayla Rivera ENTERED: 02/17/25 09:34 SP TYPE: Surgical OTHR DR: Alfonso Schwartz MD Tissues: A - Gastric Biopsy B - Gastric Biopsy Procedures: Hematoxylin and Eosin Stain Gross and Microscopic Level 4
[2025-02-16] MEDS: LACTATED RINGERS 1,000 ML 150 ML IV CONT (14:38)
[2025-02-16 14:41] VITALS: BP 102/53; PULSE 61; RESP 21; O2SAT 98
[2025-02-16 14:51] VITALS: BP 115/77; PULSE 58; RESP 20; O2SAT 98
[2025-02-16 15:01] VITALS: BP 120/76; PULSE 58; RESP 17; O2SAT 98
== END 2025-02-16 15:08 | disposition home or self-care (01) ==
PROVIDERS: PCP Family Medicine Adolescent Medicine; Visit Provider Internal Medicine Gastroenterology
PROC: 0DJ08ZZ Inspection of Upper Intestinal Tract, Via Natural or Artificial Opening Endoscopic (ICD-10-PCS; CPT 43239; principal; 2025-02-16 14:00)
DX: K21.9 Gastro-esophageal reflux disease without esophagitis (principal); K29.51 Unspecified chronic gastritis with bleeding; E11.9 Type 2 diabetes mellitus without complications; E78.2 Mixed hyperlipidemia; E03.9 Hypothyroidism, unspecified; I10 Essential (primary) hypertension; I25.2 Old myocardial infarction; F17.290 Nicotine dependence, other tobacco product, uncomplicated; Z98.890 Other specified postprocedural states; Z90.49 Acquired absence of other specified parts of digestive tract; Z98.1 Arthrodesis status; Z85.850 Personal history of malignant neoplasm of thyroid; Z92.3 Personal history of irradiation; Z82.49 Family history of ischemic heart disease and other diseases of the circulatory system
CPT/HCPCS: 43239; 88305; J2003; J2704; J7120

== ENCOUNTER 2025-04-04 10:14 | Outpatient (CLI) | payer OTHER, SELFPAY ==
[2025-04-04 10:27] LABS: Hematocrit 46.9 % (42.0-52.0); Hemoglobin 15.6 g/dL (14.0-18.0); Immature Granulocyte Percent A 0.1 % (0-0.5); Lymphocytes Absolute Auto 3.78 K/mm3 (0.9-3.2); Mean Corpuscular HGB Conc 33.3 g/dl (32-36); Mean Corpuscular Hemoglobin 29.0 pg (26-34); Mean Corpuscular Volume 87.2 fl (80-100); Nucleated Red Blood Cells Absolute Auto 0.000 K/mm3 (0.0-0.012); Nucleated Red Blood Cells Perc 0.0 % (0.0-0.2); Platelet Count Result 215 k/mm3 (150-375); Red Blood Count 5.38 M/mm3 (4.6-6.20); White Blood Count 8.0 K/mm3 (4.5-10.0)
[2025-04-04 10:30] LABS: Blood Urea Nitrogen 15 mg/dL (8-26); Carbon Dioxide 29 mmol/L (22-30); Chloride 105 mmol/L (98-109); Estimated Glomerular Filt Rate > 60; Glucose 100 mg/dL (70-105); Ionized Calcium (POC) 1.25 mmol/L (1.11-1.31); Potassium 5.4 mmol/L (3.5-4.9); Sodium 143 mmol/L (138-146)
--- OUTSIDE RECORDS SUMMARY | 2025-04-04 11:26 | XMS_ITS | Encounter Summary ---
Author Organization [facility] Address [address] [place] [address] Care Team Providers Care Functional Tester Name Role Phone Alfonso Schwartz MD Primary Care Provider +1- [phone] Encounter Details Date Type Department Care Team (Latest Contact Info) Description 01/04/2009 Outpatient Historical [facility] Erica Villanueva MD [address] [place] [address] Displacement of Lumbar Intervertebral Disc without Myelopathy Social History Tobacco Use Types Packs/Day Years Used Date Smoking Tobacco: Never Assessed Sex and Gender Information Value Date Recorded Sex Assigned at Not on file 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 Oncology and Hematology - Charli [address] [place] [address] Luis Nick MD [address] [facility] [address] [place] [address] documented as of this encounter Procedures Procedure Name Priority Date/Time Associated Diagnosis Comments XR LUMBAR SPINE 2 OR 3 VW Routine 01/04/2009 10:31 AM CDT documented in this encounter Results * XR LUMBAR SPINE 2 OR 3 VW (01/04/2009 10:31 AM CDT) Anatomical Region Laterality Modality Spine Other 01/04/2009 10:3 1 AM CDT Narrative 01/04/2009 11:04 AM CDT [address] [place], [place] [address] Admit Date: 01/04/2009 JESSICA LESLIE Sex: Latanya Admit Prov: ERICA VILLANUEVA Date: 1970 Primary Care Prov: PCP, UNKNOWN CMRN: [id number] Room: [facility]: [address] [place] [address] IMAGING SERVICES Ordering Prov: N/A Accession Number: [id number] Interpretation LUMBAR SPINE 2 VIEWS 01/04/2009 History: [...] Procedure Note Roberto Turner DO - 01/04/2009 [address] [place], [place] [address] Admit Date: 01/04/2009 JESSICA LESLIE Sex: Latanya Admit Prov: ERICA VILLANUEVA Date: 1970 Primary Care Prov: PCP, UNKNOWN CMRN: [id number] [facility] [address] [place] [address] IMAGING SERVICES Ordering Prov: N/A Interpretation LUMBAR [...] myelopathy documented in this encounter Care Teams Functional Tester Relationship Specialty Start Date End Date Alfonso Schwartz MD PCP - General Family Practice 12/17/22 documented as of this encounter
--- OUTSIDE RECORDS SUMMARY | 2025-04-04 11:26 | XMS_ITS | Encounter Summary ---
Author Organization [facility] Address [address] [place] [address] Care Team Providers Care Tail Edger Name Role Phone Alfonso Schwartz MD Primary Care Provider +1- [phone] Encounter Details Date Type Department Care Team (Latest Contact Info) Description 02/22/2009 Outpatient [facility] Erica Villanueva MD [address] [place] [address] Displacement of Lumbar Intervertebral Disc without Myelopathy Social History Tobacco Use Types Packs/Day Years Used Date Smoking Tobacco: Never Assessed Sex and Gender Information Value Date Recorded Sex Assigned at Not on file 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 Gender Identity Not on file Sexual Orientation Not on file documented as of this encounter Plan of Treatment Upcoming Encounters Date Type Department Care Team (Late st Contact Info) Description 04/04/2025 3:30 PM CDT Office Visit [facility] Oncology and Hematology - Charli [address] [place] [address] Luis Nick MD [address] [facility] [address] [place] [address] documented as of this encounter Procedures Procedure Name Priority Date/Time Associated Diagnosis Comments XR LUMBAR SPINE 2 OR 3 VW Routine 02/22/2009 10:30 AM CDT documented in this encounter Results * XR LUMBAR SPINE 2 OR 3 VW (02/22/2009 10:30 AM CDT) Anatomical Region Laterality Modality Spine Other 02/22/2009 10:3 0 AM CDT Narrative 02/22/2009 6:16 PM CDT [address] [place], [place] [address] Admit Date: 02/22/2009 JESSICA LESLIE Sex: M Admit Prov: ERICA VILLANUEVA Date: 1970 Primary Care Prov: PCP, UNKNOWN CMRN: [id number] Room: [facility]: [address] [place] [address] IMAGING SERVICES Ordering Prov: N/A Accession Number: [id number] Interpretation LUMBAR SPINE AP AND LATERAL VIEWS, [...] ROBERTO MCKINNEY 02/22/2009 18:14 Transcribed: 02/22/2009 14:32 [facility] Procedure Note Jose Roberto Mckinney MD - 02/22/2009 [address] [place], [place] [address] Admit Date: 02/22/2009 JESSICA LESLIE Sex: M Admit Prov: ERICA VILLANUEVA Date: 1970 Primary Care Prov: PCP, UNKNOWN CMRN: [id number] [facility] [address] [place] [address] IMAGING SERVICES Ordering Prov: N/A Interpretation LUMBAR [...] myelopathy documented in this encounter Care Teams Tail Edger Relationship Specialty Start Date End Date Alfonso Schwartz MD PCP - General Family Practice 12/17/22 documented as of this encounter
--- OUTSIDE RECORDS SUMMARY | 2025-04-04 11:26 | XMS_ITS | Clinical Summary ---
Author Organization [facility] [employer] Address [address] [place] [address] Care Team Providers Care Combiner Name Role Phone Unavailable Primary Care Provider Unavailabl e Source Comments [facility],non-owned Affiliates and Associated Physician Practices is amultiple site organization consisting of ambulatory clinics and hospital sitesin [place], [place] and [place]. This disclosure is being madepursuant to the Care Everywhere program and may not contain all information available regarding this patient. 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 Gender Identity Not on file Sexual Orientation [...] 10/15/1987 ZOSTER VACCINE (1 of 2) 2018 DEPRESSION SCREENING 06/30/2024 COVID-19 VACCINE (1 - 2023-2 5 season) 2025 INFLUENZA VACCINE (#1) 2025 HIB VACCINE Aged [...] patient's age to complete this topic Insurance [facility] SELF PAY NO INSURANCE Member Subscriber Plan / Payer (Ef fective for All Dates) Name:Jessica Leslie Member ID:Not on file Relation to Subscriber:Not on file Name:JESSICA LESLIE Subscriber ID:Not on file (Home) Address: [address] [place] [address] Payer ID:Not on file Group ID:Not on file Type:Self Pay Address: [place], [place] [facility] * Guarantor: JESSICA LESLIE Account Type Relation to Patient Date of Phone Billing Address Personal[place] [address] [facility] SELF PAY NO INSURANCE Member Subscriber Plan / Payer (Ef fective for All Dates) Name:MariamaJessica Member ID:Not on file Relation to Subscriber:Not on file Name:JESSICA LESLIE Subscriber ID:Not on file (Home) Address: [address] [place] [address] Payer ID:Not on file Group ID:Not on file Type:Self Pay Address: [place], [place] * Guarantor: JESSICA LESLIE Account Type Relation to Patient Date of Phone Billing Address Personal/Family [address] [place] [address] [facility] SELF PAY NO INSURANCE Member Subscriber Plan / Payer (Ef fective for All Dates) Name:Jessica Leslie Member ID:Not on file Relation to Subscriber:Not on file Name:JESSICA LESLIE Subscriber ID:Not on file (Home) Address: [address] [place] [address] Payer ID:Not on file Group ID:Not on file Type:Self Pay Address: [place], [place] * Guarantor: JESSICA LESLIE Account Type Relation to Patient Date of Phone Billing Address Personal/Family [address] [place] [address] [facility] SELF PAY NO INSURANCE Member Subscriber Plan / Payer (Ef fective for All Dates) Name:Jessica Leslie Member ID:Not on file Relation to Subscriber:Not on file Name:MARIAMAJESSICA Subscriber ID:Not on file (Home) Address: [address] [place] [address] [place] [address] Payer ID:Not on file Group ID:Not on file Type:Self Pay Address: [place], [place] [facility] [employer] * Guarantor: Jessica Leslie Account Type Relation to Patient Date of Phone Billing Address Personal/Family Spouse
[2025-04-04 11:27] LABS: Alanine Aminotransferase 55 U/L (6-50); Albumin Level 4.6 g/dL (3.5-5.1); Alkaline Phosphatase 106 U/L (38-126); Anion Gap 7 mmol/L (4-12); Aspartate Amino Transferase 48 U/L (17-59); Bilirubin,Total 0.6 mg/dL (0.2-1.3); Blood Urea Nitrogen 14 mg/dL (9-20); Calcium 9.5 mg/dL (8.4-10.2); Carbon Dioxide 28 mmol/L (22-30); Chloride 104 mmol/L (98-107); Estimated Glomerular Filt Rate > 60; Glucose 103 mg/dL (65-110); Potassium 5.4 mmol/L (3.4-5.0); Sodium 139 mmol/L (137-145); Total Protein 7.9 g/dL (6.3-8.2)
--- OUTSIDE RECORDS SUMMARY | 2025-04-04 11:27 | XMS_ITS | Encounter Summary ---
Author Organization [facility] Address [address] [place] [address] Care Team Providers Care Chemical Unit Operator Name Role Phone Alfonso Schwartz MD Primary Care Provider +1- [phone] Encounter Details Date Type Department Care Team (Latest Contact Info) Description 11/08/2008 Outpatient [facility] Erica Villanueva MD [address] [place] [address] Displacement of Lumbar Intervertebral Disc without Myelopathy Social History Tobacco Use Types Packs/Day Years Used Date Smoking Tobacco: Never Assessed Sex and Gender Information Value Date Recorded Sex Assigned at Not on file 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 Gender Identity Not on file Sexual Orientation Not on file documented as of this encounter Plan of Treatment Upcoming Encounters Date Type Department Care Team (Late st Contact Info) Description 04/04/2025 3:30 PM CDT Office Visit [facility] Oncology and Hematology - Charli [address] [place] [address] Luis Nick MD [address] [facility] [address] [place] [address] documented as of this encounter Procedures Procedure Name Priority Date/Time Associated Diagnosis Comments XR LUMBAR SPINE 2 OR 3 VW Timed Study 11/08/2008 11:01 AM CDT documented in this encounter Results * XR LUMBAR SPINE 2 OR 3 VW (11/08/2008 11:01 AM CDT) Anatomical Region Laterality Modality Spine Other 11/08/2008 11:0 1 AM CDT Narrative 11/08/2008 1:36 PM CDT [address] [address] [place], [place] [address] Admit Date: 11/08/2008 JESSICA LESLIE Sex: M Admit Prov: ERICA VILLANUEVA Date: 1970 Primary Care Prov: PCP, UNKNOWN CMRN: [id number] Room: [facility]: [address] [place] [address] IMAGING SERVICES Ordering Prov: N/A Accession Number: [id number] Interpretation CLINICAL INDICATION: 38-year-old man, postop. REPORT: [...] DKT Procedure Note Brenden Thomas - 11/08/2008 [address] [place], [place] [address] Admit Date: 11/08/2008 JESSICA LESLIE Sex: M Admit Prov: ERICA VILLANUEVA Date: 1970 Primary Care Prov: PCP, UNKNOWN CMRN: [id number] Room: [facility]: [address] [place] [address] IMAGING SERVICES Ordering Prov: N/A Interpretation CLINICAL [...] myelopathy documented in this encounter Care Teams Chemical Unit Operator Relationship Specialty Start Date End Date Alfonso Schwartz MD PCP - General Family Practice 12/17/22 documented as of this encounter
--- OUTSIDE RECORDS SUMMARY | 2025-04-04 11:27 | XMS_ITS | Patient Health Record ---
Author Organization [facility] Address [address] [place] [address] Care Team Providers Care Quality Assurance Monitor Body Name Role Phone Carlos Hernandez Primary Care Provider [phone] Yung Atkins Unavailable [phone] Martinez Mooney Unavailable Unavailable Reason For Referral No Information Plan Of Treatment No Information Insurance Providers Payer Name Payer Address Payer Phone Subscriber Number Group Number Insured Name Patient Relationship to Insured Coverage Start Date Coverage End Date [facility] [address] [address] [place] [address] [id number] Hola Armstrong Self - patient is the insured
--- OUTSIDE RECORDS SUMMARY | 2025-04-04 11:27 | XMS_ITS | Clinical Summary ---
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
--- OUTSIDE RECORDS SUMMARY | 2025-04-04 11:27 | XMS_ITS | Encounter Summary ---
Author Organization [facility] Address 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 Gender Identity Not on file Sexual Orientation Not on file documented as of this encounter Plan of Treatment Upcoming Encounters Date Type Department Care Team (Late st Contact Info) Description 04/04/2025 3:30 PM CDT Office Visit [facility] Oncology and Hematology - Charli [address] [place] [address] [facility] [address] [place] [address] Luis Nick MD [address] [facility] [address] [place] [address] documented as of this encounter Procedures Procedure Name Priority Date/Time Associated Diagnosis Comments URINALYSIS WITH REFLEX CULTURE Routine 11/08/2008 2:11 PM CDT URINALYSIS W/REFLEX MICROSCOPIC Routine 11/08/2008 2:11 PM CDT documented in this encounter Results * URINALYSIS (11/08/2008 2:11 PM CDT) PH UA 5.5 5.0 - 8.0 [facility] KETONES UA Negative Negative [facility] CLARITY UA Clear Clear [facility] PROTEIN UA Negative Negative [facility] BILIRUBIN UA Negative Negative [facility] LEUKOCYTE ESTERASE UA Negative Negative [facility] SPECIFIC GRAVITY UA 1.011 1.001 - 1.035 [facility] BLOOD UA Negative Negative [facility] GLUCOSE UA Negative Negative [facility] COLOR UA Yellow [facility] NITRITE UA Negative Negative [facility] UROBILINOGEN UA <1 <=1 mg/dL [facility] 11/08/2008 2:11 PM CDT 11/08/2008 2:21 PM CDT Go Avalos MD URINE ORDERABLES Final Result Performing Organization Address [facility] Phone Number INTERFACE SYSTEM Refer to clinic/hospital department [facility] CLIA# [id number] [address] [place] [address] * URINALYSIS WITH REFLEX CULTURE (11/08/2008 2:11 PM CDT) Pathologist [facility] URINE CULTURE ORDER Not indicated [facility] Comment: Criteria for a [...] URINE ORDERABLES Final Result Performing Organization Address [facility] de Phone Number INTERFACE SYSTEM Refer to clinic/hospital department [facility] CLIA# [id number] [address] [place] [address] documented in this encounter Visit Diagnoses Diagnosis Urinary frequency documented in this encounter Care Teams Oil Well Directional Surveyor Relationship Specialty Start Date End Date Alfonso Schwartz MD PCP - General Family Practice 12/17/22 documented as of this encounter
--- OUTSIDE RECORDS SUMMARY | 2025-04-04 11:27 | XMS_ITS | Encounter Summary ---
Author Organization [facility] Address [address] [place] [address] Care Team Providers Care Belt Glass Sander Name Role Phone Alfonso Schwartz MD Primary Care Provider +1- [phone] Encounter Details Date Type Department Care Team (Latest Contact Info) Description 12/06/2008 Outpatient [facility] Erica Villanueva MD [address] [place] [address] Displacement of Lumbar Intervertebral Disc without Myelopathy Social History Tobacco Use Types Packs/Day Years Used Date Smoking Tobacco: Never Assessed Sex and Gender Information Value Date Recorded Sex Assigned at Not on file 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 Gender Identity Not on file Sexual Orientation Not on file documented as of this encounter Plan of Treatment Upcoming Encounters Date Type Department Care Team (Late st Contact Info) Description 04/04/2025 3:30 PM CDT Office Visit [facility] Oncology and Hematology - Charli [address] [place] [address] Luis Nick MD [address] [facility] [address] [place] [address] documented as of this encounter Procedures Procedure Name Priority Date/Time Associated Diagnosis Comments XR LUMBAR SPINE 2 OR 3 VW Routine 12/06/2008 10:08 AM CDT documented in this encounter Results * XR LUMBAR SPINE 2 OR 3 VW (12/06/2008 10:08 AM CDT) Anatomical Region Laterality Modality Spine Other 12/06/2008 10:0 8 AM CDT Narrative 12/06/2008 3:08 PM CDT [address] [place], [place] [address] Admit Date: 12/06/2008 JESSICA LESLIE Sex: Latanya Admit Prov: ERICA VILLANUEVA Date: 1970 Primary Care Prov: PCP, UNKNOWN CMRN: [id number] Room: [facility]: [address] [place] [address] IMAGING SERVICES Ordering Prov: N/A Accession Number: [id number] Interpretation TWO VIEWS OF THE LUMBAR SPINE. [...] Procedure Note Vasiliy Nunez MD - 12/06/2008 [address] [place], [place] [address] Admit Date: 12/06/2008 JESSICA LESLIE Sex: Latanya Admit Prov: ERICA VILLANUEVA Date: 1970 Primary Care Prov: PCP, UNKNOWN CMRN: [id number] Room: [facility]: [id number] IMAGING SERVICES Ordering Prov: N/A Interpretation TWO [...] myelopathy documented in this encounter Care Teams Belt Glass Sander Relationship Specialty Start Date End Date Alfonso Schwartz MD PCP - General Family Practice 12/17/22 documented as of this encounter
--- OUTSIDE RECORDS SUMMARY | 2025-04-04 11:27 | XMS_ITS | Encounter Summary ---
Author Organization [facility] Address 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 [address] [place] [address] documented as of this encounter [...] CDT) HEMATOCRIT 36.3(L) 40.0 - 48.0 % [facility] HEMOGLOBIN 12.0(L) 13.6 - 16.5 g/dL [facility] Blood specimen (specimen) 10/18/2008 5:32 AM CDT 10/18/2008 6:02 AM CDT us Erica Finney MD HEMATOLOGY ORDERABLES Final Res ult INTERFACE SYSTEM Refer to clinic/hospital department [facility] CLIA# [id number] [address] [place] [address] * (ABNORMAL) HEMOGLOBIN AND HEMATOCRIT (10/17/2008 7:00 PM CDT) HEMOGLOBIN 13.4(L) 13.6 - 16.5 g/dL [facility] HEMATOCRIT 40.0 40.0 - 48.0 % [facility] Blood specimen (specimen) 10/17/2008 7:00 PM CDT 10/17/2008 7:04 PM CDT us Erica Finney MD HEMATOLOGY ORDERABLES Final Res ult Performing Organization Address City/[facility] de Phone Number INTERFACE SYSTEM Refer to clinic/hospital department [facility] CLIA# [id number] [address] [place] [address] * HEMOGLOBIN AND HEMATOCRIT (10/17/2008 1:00 PM CDT) HEMOGLOBIN 13.8 13.6 - 16.5 g/dL [facility] HEMATOCRIT 40.5 40.0 - 48.0 % [facility] Blood specimen (specimen) 10/17/2008 1:00 PM CDT 10/17/2008 1:03 PM CDT us Erica Finney MD HEMATOLOGY ORDERABLES Final Res ult Performing Organization Address [facility] Phone Number INTERFACE SYSTEM Refer to clinic/hospital department [facility] CLIA# [id number] [address] [place] [address] * XR LUMBAR SPINE 1 VW (10/17/2008 11:36 AM CDT) Anatomical Region Laterality Modality Spine Other 10/17/2008 11:3 6 AM CDT Narrative 10/17/2008 5:29 PM CDT [facility] [address] [place], [place] [address] Admit Date: 10/17/2008 RHONDAJESSICA MARCUM Sex: M Admit Prov: ERICA FINNEY Date: 1970 Primary Care Prov: PCP, UNKNOWN CMRN: [id number] Room: [address] [place] [address] SSN: [id number] IMAGING SERVICES Ordering Prov: N/A Accession Number: [id number] Interpretation LUMBAR SPINE SINGLE VIEW 10/17/2008 History: [...] Note Jose Roberto Cat MD - 10/17/2008 [place] [address] [place], [place] [address] Admit Date: 10/17/2008 RHONDAJESSICA MARCUM Sex: M Admit Prov: ERICA FINNEY Date: 1970 Primary Care Prov: PCP, UNKNOWN CMRN: [id number] Room: [address] [place] [address] SSN: [id number] IMAGING SERVICES Ordering Prov: N/A Interpretation LUMBAR SPINE SINGLE VIEW 10/17/2008 History: Spine surgery Findings: Since preceding radiograph at 1100 hours, patient hasundergone anterior spinal fusion and discectomy at L5-S1 level. Interbody bonegraft is in place. Metal plate and screws are in place at L5-S1 level.Alignment appears normal. IMPRESSION: Status post anterior interbody fusion and discectomy at L5-W5peszl. . Dictated by: JOSE ROBERTO CAT 10/17/2008 13:12 Electronically signed by: JOSE ROBERTO CAT 10/17/2008 17:28 Transcribed: 10/17/2008 16:24 AMK us Erica Finney MD DIAGNOSTIC IMAGING ORDERABLES F inal Result * XR ABDOMEN 1 VW (10/17/2008 11:30 AM CDT) Anatomical Region Laterality Modality Abdomen Other 10/17/2008 11:3 0 AM CDT Narrative 10/17/2008 11:41 AM CDT [place] [address] [place], [place] [address] Admit Date: 10/17/2008 MARIAMA JESSICA Sex: M Admit Prov: ERICA FINNEY Date: 1970 Primary Care Prov: PCP, UNKNOWN CMRN: [id number] Room: [place] [address] SSN: [id number] IMAGING SERVICES Ordering Prov: N/A Accession Number: [id number] Interpretation Abdomen portable AP, 10/17/2008 at 1130 hours Indication: Rule out retained surgical instrument Findings: L5-S1 fusion plate and screw is seen. No other radiopaque density is seen. Impression: No retained metallic surgical instrument. . Dictated by: QUE GREEN 10/17/2008 11:39 Electronically signed by: QUE GREEN 10/17/2008 11:40 Procedure Note Que Green MD - 10/17/[address] [address] Admit Date: 10/17/2008 JESSICA LESLIE Sex: M Admit Prov: ERICA FINNEY Date: 1970 Primary Care Prov: PCP, UNKNOWN CMRN: [id number] Room: [place] [address] SSN: [id number] IMAGING SERVICES Ordering Prov: N/A Interpretation Abdomen [...] AM CDT Narrative 10/17/2008 11:02 AM CDT [place] [address] [place], [place] [address] Admit Date: 10/17/2008 JESSICA LESLIE Sex: M Admit Prov: ERICA FINNEY Date: 1970 Primary Care Prov: PCP, UNKNOWN CMRN: [id number] Room: [place] [address] SSN: [id number] IMAGING SERVICES Ordering Prov: N/A Accession Number: [id number] Interpretation Lumbar spine one view 10/17/2008. History: Surgery Findings: A single lateral view of lumbar spine was obtained. A probe is noted with tip projecting at L5-S1. . Dictated by: DANYA ORELLANA 10/17/2008 11:00 Electronically signed by: DANYA ORELLANA 10/17/2008 11:01 Procedure Note Danya Walsh MD - 10/17/[address] [address] Admit Date: 10/17/2008 MARIAMA JESSICA Sex: M Admit Prov: ERICA FINNEY Date: 1970 Primary Care Prov: PCP, UNKNOWN CMRN: [id number] Room: [place] [address] SSN: [id number] IMAGING SERVICES Ordering Prov: N/A Interpretation Lumbar [...] AM CDT Narrative 10/18/2008 7:47 AM CDT [address] [address] Admit Date: 10/17/2008 JESSICA LESLIE Sex: M Admit Prov: ERICA FINNEY Date: 1970 Primary Care Prov: PCP, UNKNOWN CMRN: [id number] Room: [address] [place] [address] SSN: [id number] IMAGING SERVICES Ordering Prov: ERICA FINNEY Accession Number: [id number] Interpretation Fluoroscopic guidance was used by the surgeon to assist with performance of this intra-operative procedure. Please refer to surgeon s operative report for specific details. Dictated by: RADIOLOGY, DEPARTMENT O Electronically signed by: RADIOLOGY, DEPARTMENT 10/18/2008 07:47 Transcribed: 10/17/2008 16:31 AMK Procedure Note Radiology, Radiologist - 10/18/[address] [address] Admit Date: 10/17/2008 JESSICA LESLIE Sex: M Admit Prov: ERICA FINNEY Date: 1970 Primary Care Prov: PCP, UNKNOWN CMRN: [id number] Room: [address] [place] [address] SSN: [id number] IMAGING SERVICES Ordering Prov: ERICA FINNEY Skip [...] CDT) HEMOGLOBIN 16.1 13.6 - 16.5 g/dL [facility] HEMATOCRIT 46.8 40.0 - 48.0 % [facility] Blood specimen (specimen) 10/13/2008 4:05 PM CDT 10/13/2008 4:42 PM CDT us Erica Finney MD HEMATOLOGY ORDERABLES Final Res ult Performing Organization Address [facility] de Phone Number INTERFACE SYSTEM Refer to clinic/hospital department [facility] CLIA# [id number] [address] [place] [address] * TYPE AND CROSSMATCH (10/13/2008 3:57 PM CDT) HISTORY CHECK No Historical ABO/Rh [facility] SPECIMEN LIFE 3 days from OR date [facility] ABO/RH TYPE O Negative [facility] ANTIBODY SCREEN Negative [facility] Blood specimen (specimen) 10/13/2008 3:57 PM CDT Erica Finney MD BLOOD BANK ORDERABLES Edited Performing Organization Address [facility] Phone Number INTERFACE SYSTEM Refer to clinic/hospital department [facility] CLIA# [id number] [address] [place] [address] documented in this encounter Visit Diagnoses Diagnosis Displacement of intervertebral disc, site unspecified, without myelopathy documented in this encounter Care Teams Building Construction Teacher Relationship Specialty Start Date End Date Alfonso Schwartz MD PCP - General Family Practice 12/17/22 documented as of this encounter
--- OUTSIDE RECORDS SUMMARY | 2025-04-04 11:27 | XMS_ITS | Clinical Summary ---
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 Gender Identity Not on file Sexual Orientation [...] Visit [facility] Oncology and Hematology [facility] [address] [facility] [address] [place] [address] Luis Nick MD [address] [facility] [address] [place] [address] Health Maintenance Due Date Last Done Comments Pre-Diabetes and Diabetes Screening 1970 DTAP/TDAP/TD VACCINES (1 - Tdap) 10/15/1987 HEPATITIS B VACCINES (1 of 3 - 19+ 3-dose series) 09/28 ZOSTER VACCINE (1 of 2) 2018 Preventative Visit- Commercial 06/30/2024 INFLUENZA VACCINE (#1) 2025 Abdominal Aortic Aneurysm [...] Most Recently Relevant to Health Maintenance Insurance [employer] [id number] [employer] [id number] Care Teams Mine Shifter Relationship Specialty Start Date End Date Alfonso Schwartz MD PCP - General Family Practice 12/17/22
--- OUTSIDE RECORDS SUMMARY | 2025-04-04 11:27 | XMS_ITS | Clinical Summary ---
Author Organization [facility] Address [facility] [place] [address] Care Team Providers Care Audiovisual Aids Technician Name Role Phone Unavailable Primary Care Provider [...] 2) 2018 COVID-19 Vaccine (2023-2 5 season) 2025 Meningococcal B Vaccine Aged Out No l onger eligible based on patient's age to complete this topic Meningococcal Vaccine Aged Out No kaay wale eligible based on patient's age to complete this topic RSV Immunizations Under 20 Months Aged Out No longer eligible based on patient's age to complete this topic
[2025-04-04 12:03] LABS: Carcinoembryonic Antigen 0.9 ng/mL (0.0-3.0)
== END 2025-04-04 10:15 | disposition home or self-care (01) ==
LOC: ANHLAB 10:15
PROVIDERS: PCP Family Medicine Adolescent Medicine; Visit Provider Internal Medicine Hematology & Oncology
DX: C18.9 Malignant neoplasm of colon, unspecified (principal)
CPT/HCPCS: 36415; 80047; 80053; 82378; 85025